=== PATIENT | male | born 1960 | race Caucasian/White ===

== ENCOUNTER 2016-05-12 10:06 | Emergency (ER) | payer OTHER ==
[2016-05-12 10:15] VITALS: BMI 31.6
[2016-05-12] MEDS ORDERED: ONDANSETRON 4 MG/2 ML VIAL IVPB ONE (10:58)
[2016-05-12] MEDS ORDERED: MECLIZINE HCL 25 MG TABLET (FP) PO ONE (10:58)
[2016-05-12] MEDS ORDERED: SODIUM CHLORIDE 1,000 ML IV STA (10:58)
--- NOTE | 2016-05-12 10:58 | PDOC ---
History of Present Illness - History of Present Illness Initial Comments: 05/12/16 11:53 The patient is 55 year old male with significant past medical history of hypertension, hyperlipidemia, CAD s/p stents x4, who presents to the emergency department with dizziness since 3am this morning. The patient states he went to bed in his normal states of health and then woke up around 3am with dizziness, nausea, and vomiting. The patient states he is dizzy when he lays down but he is not dizzy when sitting up or with walking. The patient denies any headache. He denies any vision changes or blurry vision. The patient denies any abdominal pain or diarrhea but reports associated nausea with his dizziness. The patient states he quit smoking 8 years ago. He denies any recent illness, fevers, or chills. He denies sick contacts. <Carmenza Wiblurn - Last Filed: 05/12/16 11:56> - General History Source: Patient Exam Limitations: No Limitations <Isabel Valadez - Last Filed: 05/14/16 13:32> - General Chief Complaint: Pain, Acute Stated Complaint: ABD PAIN, NAUSEA, DIZZINESS Time Seen by Provider: 05/12/16 10:41 Past History <Carmenza Wilburn - Last Filed: 05/12/16 11:56> - Past Medical History Cardiac Disorders: Yes (CAD, 4 STENTS) HTN: Yes Hypercholesterolemia: Yes Suicide Attempt (Hx): No - Surgical History Cardiac Surgery: Yes (STENT X 4) - Psycho/Social/Smoking Cessation Hx Anxiety: Yes (NOT ON MEDS; ON OCCASSION) Suicidal Ideation: No Smoking Status: Yes Smoking History: Former smoker Have you smoked in the past 12 months: No Number of Cigarettes Smoked Daily: 0 Information on smoking cessation initiated: No 'Breaking Loose' booklet given: 07/30/13 Hx Alcohol Use: No Drug/Substance Use Hx: No Substance Use Type: None <Isabel Valadez - Last Filed: 05/14/16 13:32> - Past Medical History Allergies/Adverse Reactions: Allergies Allergy/AdvReac Type Severity Reaction Status Date / Time No Known Allergies Allergy Verified 05/12/16 10:15 Home Medications: Ambulatory Orders Clopidogrel Bisulfate [Plavix -] 75 mg PO DAILY 07/23/11 Aspirin [ASA -] 81 mg PO DAILY 05/08/14 Atorvastatin Ca [Lipitor] 60 mg PO HS #60 tablet 05/22/14 Metoprolol Succinate [Toprol XL -] 25 mg PO DAILY #60 tab.sr.24h 05/22/14 Meclizine HCl [Antivert -] 25 mg PO TID #21 tablet 05/12/16 Review of Systems - Review of Systems Able to Perform ROS?: Yes Comments:: 05/12/16 11:54 GENERAL/CONSTITUTIONAL: No: fever, chills, weakness, loss of appetite. HEAD, EYES, EARS, NOSE AND THROAT: No: change in vision, ear pain, discharge, sore throat, throat swelling. CARDIOVASCULAR: No: chest pain, lightheadedness, palpitations, syncope RESPIRATORY: No: cough, shortness of breath, wheezing, hemoptysis, stridor. GASTROINTESTINAL: +Nausea, +vomiting. No: abdominal cramping, diarrhea, rectal bleeding, constipation. GENITOURINARY: No: dysuria, hematuria, frequency, urgency, flank pain. MUSCULOSKELETAL: No: back pain, neck pain, joint pain, muscle swelling or pain SKIN AND BREASTS: No: lesions, pallor, rash or easy bruising. NEUROLOGIC: +Vertigo. No: headache, paresthesias, weakness ENDOCRINE: No: unexplained weight gain or loss HEMATOLOGIC/LYMPHATIC: No: anemia, easy bleeding, swelling nodes <Carmenza Wilburn - Last Filed: 05/12/16 11:56> *Physical Exam - Vital Signs Last Vital Signs Temp Pulse Resp BP Pulse Ox 98 F 63 18 158/68 99 05/12/16 10:12 05/12/16 10:12 05/12/16 10:12 05/12/16 10:12 05/12/16 10:12 - Physical Exam Comments: 05/12/16 11:54 GENERAL: The patient is in no acute distress. HEAD: Normal with no signs of trauma. EYES: PERRLA, EOMI, sclera anicteric, conjunctiva clear. ENT: Ears normal, nares patent, oropharynx clear without exudates. Moist mucous membranes. NECK: Normal range of motion, supple without lymphadenopathy, JVD, or masses. LUNGS: Breath sounds equal, clear to auscultation bilaterally. No wheezes, and no crackles. HEART: Regular rate and rhythm, normal S1 and S2, +4/6 systolic murmur, no rub or gallop. ABDOMEN: +Epigastric discomfort to palpation. Soft, normoactive bowel sounds. No guarding, no rebound. EXTREMITIES: Normal range of motion, no edema. No clubbing or cyanosis. No erythema, or tenderness. NEUROLOGICAL: Cranial nerves II through XII grossly intact. Normal speech, normal gait. No focal neurological deficits. MUSCULOSKELETAL: Back non-tender to palpation, no CVA tenderness SKIN: Warm, Dry, normal turgor, no rashes or lesions noted. <Carmenza Wilburn - Last Filed: 05/12/16 11:56> - Vital Signs Last Vital Signs Temp Pulse Resp BP Pulse Ox 98 F 63 18 158/68 99 05/12/16 10:12 05/12/16 10:12 05/12/16 10:12 05/12/16 10:12 05/12/16 10:12 <Isabel Valadez - Last Filed: 05/14/16 13:32> Heart Score/ECG Review #1 ECG reviewed & interpreted by me at: 11:12 General ECG Interpretation: Sinus Rhythm, Normal Rate, Normal Intervals, No acute ischemic changes <Isabel Valadez - Last Filed: 05/14/16 13:32> ED Treatment Course - LABORATORY CBC & Chemistry Diagram: 05/12/16 11:09 05/12/16 11:09 <Carmenza Wilburn - Last Filed: 05/12/16 11:56> - LABORATORY CBC & Chemistry Diagram: 05/12/16 11:09 05/12/16 11:09 <Isabel Valadez - Last Filed: 05/14/16 13:32> Medical Decision Making - Medical Decision Making 05/12/16 10:57 A portion of this note was documented by scribe services under my direction. I have reviewed the details of the note, within reason, and agree with the documentation with the following case summary and management plan written by me. Nursing documentation reviewed and incorporated into medical decision making 05/12/16 13:33 This is a 55 yo M who presents with a complaint of nausea, vomiting, vertigo abdominal pain No headache No head trauma No tinnitus Pt states his symptoms worsen when he lays flat No prior episodes like this No fevers, chills, recent illness With pt abdominal symptoms, he thought his symptoms might be due to what he ate last night Pt has RUQ tenderness to palpation On examination No ataxia No nystagmus Able to trigger symptoms when pt is laid flat DD: Vertigo: Labrynthiais, BPPV, Posterior PAthologh Abdominal pain: cholecystitis, cholelithiasis, Pancreatitis, SBO Will check labs Will check Head CT Will check US 05/12/16 13:41 05/12/16 13:41 Laboratory Tests 05/12/16 05/12/16 11:09 11:09 WBC 8.2 Hgb 15.5 Hct 45.6 Plt Count 190 Neutrophils % 61.8 Lymphocytes % 30.9 D BUN 20 H Creatinine 1.1 D Random Glucose 105 Creatine Kinase 152 D Troponin I < 0.02 Upon re assessment Pt states he feels better No longer vertiginous when he lays flat Tolerated a tray of food with no dfficulty clinical impression: vertigo Will discharge on Meclizine Return to the ER for any other concerns or complaints <Isabel Valadez - Last Filed: 05/14/16 13:32> *DC/Admit/Observation/Transfer - Attestations Scribe Attestion: 05/12/16 11:05 Documentation prepared by Carmenza Wilburn, acting as general medical practitioner for Isabel Valadez MD. <Carmenza Wilburn - Last Filed: 05/12/16 11:56> - Discharge Dispostion Admit: No <Isabel Valadez - Last Filed: 05/14/16 13:32> Diagnosis at time of Disposition: Benign positional vertigo Qualifiers: Laterality: unspecified laterality Qualified Code(s): H81.10 - Benign paroxysmal vertigo, unspecified ear - Discharge Dispostion Disposition: HOME Condition at time of disposition: Improved - Prescriptions Prescriptions: Meclizine HCl [Antivert -] 25 mg PO TID #21 tablet - Referrals Referrals: Rian Castillo MD [Primary Care Provider] - - Patient Instructions Printed Discharge Instructions: DI for Benign Paroxysmal Positional Vertigo, Vertigo (Alternative Therapy) Additional Instructions: Librado Thank you for coming in to the ER today It appears that you have vertigo Please fill your prescription for Meclizine which will help your symptoms Please follow up with your doctor within 2-3 days Return to the Er immediately for persistent or new symptoms We also evaluated your gall bladder Your gallbladder looks fine Your liver has some changes on ultrasound Please review your results and follow up with your doctor with these results - Post Discharge Activity Work/School Note: Back to Work
[2016-05-12] MEDS ORDERED: MECLIZINE HCL 25 MG TABLET (FP) ONE (11:17)
[2016-05-12] MEDS ORDERED: ONDANSETRON 4 MG/2 ML VIAL ONE (11:17)
[2016-05-12 11:21] LABS: BASOPHIL 0.6 % (0-2.0); MCH 28.3 pg (25.7-33.7); MCHC 33.9 g/dl (32.0-35.9); MEAN CELL VOLUME 83.6 fl (80-96); MEAN PLT VOLUME 8.3 fl (7.5-11.1); NEUTROPHILS 61.8 % (42.8-82.8); PLATELET COUNT 190 K/MM3 (134-434); RDW 14.2 % (11.9-15.9); WHITE BLOOD COUNT 8.2 K/mm3 (4.0-10.0)
[2016-05-12 11:47] LABS: ALBUMIN 4.1 g/dl (3.4-5.0); ANION GAP 6 (8-16); BILIRUBIN,TOTAL 0.5 mg/dL (0.2-1.0); CALCIUM 8.9 mg/dL (8.5-10.1); CO2 32 mmol/L (21-32); CREATININE 1.1 mg/dL (0.7-1.3); GLUCOSE,RANDOM 105 mg/dL (74-106); SGOT/AST 16 U/L (15-37); SGPT/ALT 31 U/L (12-78); TOT PROT 7.1 g/dl (6.4-8.2)
[2016-05-12 11:50] LABS: ALK PHOS 81 U/L (45-117); TROPONIN I < 0.02 ng/ml (0.00-0.05)
--- NOTE | 2016-05-12 14:13 | EKG ---
Test Reason : Blood Pressure : / mmHG Vent. Rate : 065 BPM Atrial Rate : 065 BPM P-R Int : 134 ms QRS Dur : 084 ms QT Int : 396 ms P-R-T Axes : 000 011 039 degrees QTc Int : 411 ms NORMAL SINUS RHYTHM NORMAL ECG WHEN COMPARED WITH ECG OF 20-DEC-2014 08:59, NONSPECIFIC T WAVE ABNORMALITY, IMPROVED IN LATERAL LEADS Confirmed by BRITT MONTOYA MD ([id number]) on 05/12/2016 2:13:20 PM Referred By: Confirmed By:BRITT MONTOYA MD
[2016-05-12 14:17] VITALS: BP 127/86; PULSE 64; TEMP 97.8
== END 2016-05-12 14:17 | disposition home or self-care (01) ==
LOC: JER 10:06
PROC: 3E033GC Introduction of Other Therapeutic Substance into Peripheral Vein, Percutaneous Approach (ICD-10-PCS; principal; 2016-05-12)
PROC: 3E0337Z Introduction of Electrolytic and Water Balance Substance into Peripheral Vein, Percutaneous Approach (ICD-10-PCS; 2016-05-12)
DX: H81.10 Benign paroxysmal vertigo, unspecified ear (principal); I10 Essential (primary) hypertension; Z95.5 Presence of coronary angioplasty implant and graft; E78.00 Pure hypercholesterolemia, unspecified; Z87.891 Personal history of nicotine dependence
CPT/HCPCS: 36415; 70450-TC; 76705-TC; 80053; 82550; 82553; 84484; 85025; 93005; 93010; 99283-25

== ENCOUNTER 2017-10-17 18:00 | Observation (INO) | payer OTHER ==
--- NOTE | 2017-10-17 18:18 | PDOC ---
Rapid Medical Evaluation Chief Complaint: Chest Pain Time Seen by Provider: 10/17/17 18:13 Medical Evaluation: Allergies Allergy/AdvReac Type Severity Reaction Status Date / Time No Known Allergies Allergy Verified 10/17/17 18:05 Vital Signs Temp Pulse Resp BP Pulse Ox 99.2 F 61 18 148/72 99 10/17/17 18:05 10/17/17 18:05 10/17/17 18:05 10/17/17 18:05 10/17/17 18:05 10/17/17 18:13 complain: Patient with h/o unstable angina with 3 heart stents placed 8hrs ago, HPL on lipitor and plavix with ASA present with complains of burning chest pain upon wake this AM going to the back and left shoulder area. Patient report pressure in the chest which comes on with deep breathing and going to mid-back and left shoulder area. no SOB, no palpitations, no sweats, no N/V exam: pt stable in NAD. lungs:CTA b/l. heart: RRR, non-tender chest wall. : abd : soft NT/ND order: EKG with NSR f/u patient will proceed to ED for further evaluation Discharge Disposition - Diagnosis Chest pain Qualifiers: Chest pain type: chest pain on breathing Qualified Code(s): R07.1 - Chest pain on breathing; R07.81 - Pleurodynia - Referrals - Patient Instructions - Post Discharge Activity
[2017-10-17 18:27] VITALS: BMI 31.1
[2017-10-17] MEDS ORDERED: ASPIRIN 81 MG CHEWABLE TABLETS PO ONE (18:59)
--- NOTE | 2017-10-17 18:59 | PDOC ---
History of Present Illness - General History Source: Patient Exam Limitations: No Limitations <Kristan Gomez - Last Filed: 10/17/17 22:01> - General History Source: Patient Exam Limitations: No Limitations - History of Present Illness Presenting Symptoms: Chest Pain Timing/Duration: reports: changing over time Severity/Quality: reports: pressure Chest Pain Radiation: reports: no radiation Prior Chest Pain/Cardiac Workup: reports: Cardiac Cath, Echocardiography, Stress Test Aspirin Received prior to arrival (Core Measure): Yes: 81 mg x 2, provided by ED Beta Pio taken at Home (Core Measure): Yes (takes metoprolol daily and plavix) <Migdalia Jeffrey - Last Filed: 10/18/17 01:47> - General Chief Complaint: Chest Pain Stated Complaint: CHEST PAIN Time Seen by Provider: 10/17/17 18:13 - History of Present Illness Initial Comments: 10/17/17 19:03 The patient is a 58 year old male, with a significant past medical history of hypertension, CAD s/p stents x4, hyperlipidemia, who presents to the emergency department with chest pain since waking up this morning. He reports the pain is 7/10, constant, pressure to his chest. He reports his pain is exacerbated with activity and deep inspiration. He states this pain is not similar to his previous experience of chest pain leading up to his stent placements. He denies pain radiation into his neck or arms. The patient denies shortness of breath, headache and dizziness. The patient denies fever, chills, nausea, vomit, diarrhea and constipation.The patient denies dysuria, frequency, urgency and hematuria. Allergies: NKDA Past surgical history: stent x4 Social history: occasional beer. No illicit drugs or tobacco. PCP - Dr. Jessica Castillo (Kristan Gomez) Past History <Kristan Gomez - Last Filed: 10/17/17 22:01> - Past Medical History Cardiac Disorders: Yes (CAD, 4 STENTS) COPD: No HTN: Yes Hypercholesterolemia: Yes - Surgical History Cardiac Surgery: Yes (STENT X 4) - Suicide/Smoking/Psychosocial Hx Smoking Status: Yes Smoking History: Never smoked Have you smoked in the past 12 months: No Number of Cigarettes Smoked Daily: 0 Information on smoking cessation initiated: No 'Breaking Loose' booklet given: 07/30/13 Hx Alcohol Use: No Drug/Substance Use Hx: No Substance Use Type: None <Migdalia Jeffrey - Last Filed: 10/18/17 01:47> - Past Medical History Allergies/Adverse Reactions: Allergies Allergy/AdvReac Type Severity Reaction Status Date / Time No Known Allergies Allergy Verified 10/17/17 18:05 Home Medications: Ambulatory Orders Clopidogrel Bisulfate [Plavix -] 75 mg PO DAILY 07/23/11 Aspirin [ASA -] 81 mg PO DAILY 05/08/14 Atorvastatin Ca [Lipitor] 60 mg PO HS #60 tablet 05/22/14 Metoprolol Succinate [Toprol XL -] 25 mg PO DAILY #60 tab.sr.24h 05/22/14 Meclizine HCl [Antivert -] 25 mg PO TID #21 tablet 05/12/16 Review of Systems - Review of Systems Able to Perform ROS?: Yes <Kristan Gomez - Last Filed: 10/17/17 22:01> <Migdalia Jeffrey - Last Filed: 10/18/17 01:47> - Review of Systems Comments:: 10/17/17 19:03 CONSTITUTIONAL: Absent: fever, chills, diaphoresis, generalized weakness, malaise, loss of appetite HEENT: Absent: rhinorrhea, nasal congestion, throat pain, throat swelling, difficulty swallowing, mouth swelling, ear pain, eye pain, visual Changes CARDIOVASCULAR: (+) chest pain and pressure, Absent: syncope, palpitations, irregular heart rate , lightheadedness, peripheral edema RESPIRATORY: Absent: cough, shortness of breath, dyspnea with exertion, orthopnea, wheezing, stridor, hemoptysis GASTROINTESTINAL: Absent: abdominal pain, abdominal distension, nausea, vomiting, diarrhea, constipation, melena, hematochezia GENITOURINARY: Absent: dysuria, frequency, urgency, hesitancy, hematuria, flank pain, genital pain MUSCULOSKELETAL: Absent: myalgia, arthralgia, joint swelling SKIN: Absent: rash, itching, pallor HEMATOLOGIC/IMMUNOLOGIC: Absent: easy bleeding, easy bruising, lymphadenopathy, frequent infections ENDOCRINE: Absent: unexplained weight gain, unexplained weight loss, heat intolerance, cold intolerance NEUROLOGIC: Absent: headache, focal weakness or paresthesias, dizziness, unsteady gait, seizure, mental status changes, bladder or bowel incontinence PSYCHIATRIC: Absent: anxiety, depression, suicidal or homicidal ideation, hallucinations. (Kristan Gomez) *Physical Exam <Kristan Gomez - Last Filed: 10/17/17 22:01> <Migdalia Jeffrey - Last Filed: 10/18/17 01:47> - Vital Signs Last Vital Signs Temp Pulse Resp BP Pulse Ox 99.2 F 61 18 148/72 99 10/17/17 18:05 10/17/17 18:05 10/17/17 18:05 10/17/17 18:05 10/17/17 18:05 - Physical Exam Comments: 10/17/17 19:08 GENERAL: Well developed, well nourished. Awake and alert. No acute distress. HEENT: Normocephalic, atraumatic. PERRLA, EOMI. No conjunctival pallor. Sclera are non- icteric. Moist mucous membranes. Oropharynx is clear. NECK: Supple. Full ROM. No JVD. Carotid pulses 2+ and symmetric, without bruits. No thyromegaly. No lymphadenopathy. CARDIOVASCULAR: Regular rate and rhythm. No murmurs, rubs, or gallops. Distal pulses are 2+ and symmetric. PULMONARY: No evidence of respiratory distress. Lungs clear to auscultation bilaterally. No wheezing, rales or rhonchi. ABDOMINAL: Soft. Non-tender. Non-distended. No rebound or guarding. No organomegaly. Normoactive bowel sounds. MUSCULOSKELETAL Normal range of motion at all joints. No bony deformities or tenderness. No CVA tenderness. EXTREMITIES: No cyanosis. No clubbing. No edema. No calf tenderness. SKIN: Warm and dry. Normal capillary refill. No rashes. No jaundice. NEUROLOGICAL: Alert, awake, appropriate. Cranial nerves 2-12 intact. Normoreflexic in the upper and lower extremities. Normal speech. Toes are down-going bilaterally. Gait is normal without ataxia. PSYCHIATRIC: Cooperative. Good eye contact. Appropriate mood and affect. (Kristan Gomez) ED Treatment Course - LABORATORY CBC & Chemistry Diagram: 10/17/17 20:20 10/17/17 20:20 <Kristan Gomez - Last Filed: 10/17/17 22:01> - LABORATORY CBC & Chemistry Diagram: 10/17/17 20:20 10/17/17 20:20 <Migdalia Jeffrey - Last Filed: 10/18/17 01:47> - ADDITIONAL ORDERS Additional order review: Laboratory Results 10/17/17 10/17/17 10/17/17 23:30 20:20 20:20 PT with INR 11.70 INR 1.04 Sodium 145 Potassium 4.2 Chloride 110 H Carbon Dioxide 28 Anion Gap 7 L BUN 24 H Creatinine 1.1 Creat Clearance w eGFR > 60 Random Glucose 91 Calcium 9.1 Magnesium 2.3 Total Bilirubin 0.4 AST 28 D ALT 40 D Alkaline Phosphatase 75 Creatine Kinase 153 Creatine Kinase Index 0.4 CK-MB (CK-2) 0.75 Troponin I < 0.02 B-Natriuretic Peptide 133.87 H Total Protein 7.6 Albumin 4.3 10/17/17 20:20 RBC 5.42 MCV 85.6 MCHC 33.9 RDW 14.0 MPV 8.5 Neutrophils % 66.4 Lymphocytes % 23.1 D Monocytes % 8.4 Eosinophils % 1.7 Basophils % 0.4 - RADIOLOGY Radiology Studies Ordered: Category Date Time Status CHEST X-RAY PORTABLE* [RAD] Stat Radiology 10/17/17 19:01 Completed - Medications Given in the ED: ED Medications Discontinued Medications Generic Name Dose Route Start Last Admin Trade Name Freq PRN Reason Stop Dose Admin Aspirin 162 mg 10/17/17 18:59 10/17/17 22:46 Asa - PO 10/17/17 19:00 162 mg ONCE ONE Administration *DC/Admit/Observation/Transfer <Kristan Gomez - Last Filed: 10/17/17 22:01> - Discharge Dispostion Decision to Admit order: Yes <Migdalia Jeffrey - Last Filed: 10/18/17 01:47> Diagnosis at time of Disposition: Chest pain Qualifiers: Chest pain type: chest pain on breathing Qualified Code(s): R07.1 - Chest pain on breathing - Discharge Dispostion Decision to Admit order Date/Time: Decision to Admit Order Category Date Time Status Decision to Admit to Hospital Routine Admission 10/17/17 23:05 Active - Referrals Referrals: Rian Castillo MD [Primary Care Provider] - - Patient Instructions - Post Discharge Activity - Attestations Scribe Attestion: 10/17/17 19:09 Documentation prepared by Kristan Gomez, acting as medical legal investigator for Migdalia Jeffrey MD (Kristan Gomez)
[2017-10-17 20:45] LABS: BASO % 0.4 % (0-2.0); EOS % 1.7 % (0-4.5); HEMATOCRIT 46.4 % (35.4-49); HEMOGLOBIN 15.7 GM/dL (11.7-16.9); LYMPH % 23.1 % (8-40); MCHC 33.9 g/dl (32.0-35.9); MEAN CELL VOLUME 85.6 fl (80-96); MEAN PLT VOLUME 8.5 fl (7.5-11.1); MONO % 8.4 % (3.8-10.2); NEUT % 66.4 % (42.8-82.8); PLATELET COUNT 208 K/MM3 (134-434); RBC 5.42 M/mm3 (4.00-5.60); WHITE BLOOD COUNT 11.7 K/mm3 (4.0-10.0)
[2017-10-17 20:51] LABS: INR 1.04 (0.83-1.09); PROTHROMBIN TIME (PATIENT) 11.7 SEC (9.7-13.0)
[2017-10-17 20:59] LABS: ALBUMIN 4.3 g/dl (3.4-5.0); ANION GAP 7 (8-16); BILIRUBIN,TOTAL 0.4 mg/dL (0.2-1.0); BLOOD UREA NITROGEN 24 mg/dL (7-18); CALCIUM 9.1 mg/dL (8.5-10.1); CHLORIDE 110 mmol/L (98-107); CO2 28 mmol/L (21-32); CREATININE 1.1 mg/dL (0.7-1.3); GLUCOSE,RANDOM 91 mg/dL (74-106); MAGNESIUM 2.3 mg/dL (1.8-2.4); POTASSIUM 4.2 mmol/L (3.5-5.1); SGOT/AST 28 U/L (15-37); SGPT/ALT 40 U/L (12-78); SODIUM 145 mmol/L (136-145); TOT PROT 7.6 g/dl (6.4-8.2)
[2017-10-17 21:02] LABS: ALK PHOS 75 U/L (45-117)
[2017-10-17] MEDS ORDERED: ASPIRIN 81 MG CHEWABLE TABLETS ONE (22:23)
--- NOTE | 2017-10-17 22:49 | HP ---
Admitting History and Physical - Primary Care Physician PCP: Rian Castillo - Admission Chief Complaint: Chest Pressure History of Present Illness: This is a 57 y/o man with a significant medical history of CAD s/p stents x 4, HTN, HLD. Who presents to the ED with midsternal chest pressure radiating to his back x am. Patient reports the pressure increases with movement and deep inspiration. Patient reports SOB. Patient denies fever, chills, cough, dizziness , OROZCO, AP, N/V/D, constipation, dysuira. History Source: Patient Limitations to Obtaining History: No Limitations - Past Medical History Cardiovascular: Yes: CAD, HTN, Hyperlipdemia, [place], Murmur Infectious Disease: Yes: Other (h/o rheumatic fever) Psych: Yes: Anxiety, Depression - Past Surgical History Past Surgical History: Yes: Stent - Smoking History Smoking history: Former smoker Have you smoked in the past 12 months: No Aproximately how many cigarettes per day: 0 - Alcohol/Substance Use Hx Alcohol Use: No History of Substance Use: reports: None - Social History Usual Living Arrangement: Yes: With Parent ADL: Independent Occupation: Retired, Disabled History of Recent Travel: No Home Medications - Allergies Allergies/Adverse Reactions: Allergies Allergy/AdvReac Type Severity Reaction Status Date / Time No Known Allergies Allergy Verified 10/17/17 18:05 - Home Medications Home Medications: Ambulatory Orders Clopidogrel Bisulfate [Plavix -] 75 mg PO DAILY 07/23/11 Aspirin [ASA -] 81 mg PO DAILY 05/08/14 Atorvastatin Ca [Lipitor] 60 mg PO HS #60 tablet 05/22/14 Metoprolol Succinate [Toprol XL -] 25 mg PO DAILY #60 tab.sr.24h 05/22/14 Meclizine HCl [Antivert -] 25 mg PO TID #21 tablet 05/12/16 Family Disease History - Family Disease History Family Disease History: Heart Disease: Mother (Thyroid), Other: Father (CVA at 77, ), Mother Review of Systems - Review of Systems Constitutional: reports: No Symptoms Eyes: reports: No Symptoms HENT: reports: No Symptoms Neck: reports: No Symptoms Cardiovascular: reports: Chest Pain, Shortness of Breath Respiratory: reports: SOB, SOB on Exertion Gastrointestinal: reports: No Symptoms Genitourinary: reports: No Symptoms Breasts: reports: No Symptoms Reported Musculoskeletal: reports: Back Pain Integumentary: reports: No Symptoms Neurological: reports: No Symptoms Endocrine: reports: No Symptoms Hematology/Lymphatic: reports: No Symptoms Psychiatric: reports: No Symptoms Physical Examination Vital Signs: Vital Signs Temperature 99.2 F 10/17/17 18:05 Pulse Rate 61 10/17/17 18:05 Respiratory Rate 18 10/17/17 18:05 Blood Pressure 148/72 10/17/17 18:05 O2 Sat by Pulse Oximetry (%) 99 10/17/17 18:05 Constitutional: Yes: Well Nourished, No Distress, Calm Eyes: Yes: WNL, Conjunctiva Clear, EOM Intact, PERRL HENT: Yes: WNL, Atraumatic, Normocephalic Neck: Yes: WNL, Supple, Trachea Midline Cardiovascular: Yes: WNL, Regular Rate and Rhythm, Murmur (2/6), S1, S2 Respiratory: Yes: WNL, Regular, CTA Bilaterally Gastrointestinal: Yes: WNL, Normal Bowel Sounds, Soft, Abdomen, Obese ...Rectal Exam: Yes: Deferred Renal/: Yes: WNL Breast(s): Yes: WNL Musculoskeletal: Yes: Back Pain Extremities: Yes: WNL Edema: No Peripheral Pulses WNL: Yes Integumentary: Yes: WNL Neurological: Yes: WNL, Alert, Oriented, Cran Nerves II-XII Intact ...Motor Strength: WNL Psychiatric: Yes: WNL, Alert, Oriented Labs: CBC, BMP 10/17/17 20:20 10/17/17 20:20 Troponin, BNP 10/17/17 10/17/17 20:20 23:30 Troponin I < 0.02 B-Natriuretic Peptide 133.87 H Intake & Output 10/15/17 10/16/17 10/17/17 10/18/17 23:59 23:59 23:59 23:59 Weight 84.822 kg Imaging - Results Chest X-ray: Report Reviewed, Image Reviewed Problem List - Problems (1) Chest pain Code(s): R07.9 - CHEST PAIN, UNSPECIFIED Qualifiers: Chest pain type: chest pain on breathing Qualified Code(s): R07.1 - Chest pain on breathing; R07.81 - Pleurodynia (2) CAD (coronary artery disease) Code(s): I25.10 - ATHSCL HEART DISEASE OF [place] CORONARY ARTERY W/O ANG PCTRS (3) Hyperlipidemia Code(s): E78.5 - HYPERLIPIDEMIA, UNSPECIFIED (4) Hypertension Code(s): I10 - ESSENTIAL (PRIMARY) HYPERTENSION Qualifiers: Hypertension type: essential hypertension Qualified Code(s): I10 - Essential (primary) hypertension Assessment/Plan This is a 57 y/o man placed in Tele Observation for Chest Pain r/o ACS for further evaluation of their emergent condition. Plan: 1. Cardiology Chest Pain - r/o ACS - Continue cardiac Monitoring - Chest Xray- reviewed no acute process - EKG- pending review - Serial Enzymes neg x1, will trend x2 - Repeat EKG in am - Appreciate Cardiology consult - Echo in am - Asa given in ED will continue - Morphine Sulfate prn - NTG sl prn CAD - s/p Stent x4 - Continue Asa, Plavix, Metoprolol HTN - stable - Monitor BP - Continue Metoprolol with parameters - Monitor renal function FEN - PO Fluids as tolerated - Replete lytes prn - Low Na, Low Cholesterol Diet Code Status: Full Code Dispo: Observation Visit type - Emergency Visit Emergency Visit: Yes ED Registration Date: 10/17/17 Care time: The patient presented to the Emergency Department on the above date and was hospitalized for further evaluation of their emergent condition. - New Patient This patient is new to me today: Yes Date on this admission: 10/17/17 - Critical Care Critical Care patient: No Hospitalist Screening - Colonoscopy Questionnaire Colonoscopy Questionnaire: Colonoscopy Questionnaire - Patient: 50 - 75 years old and never had a screening colonoscopy: No History of colon or rectal polyps, or CA: No History of IBD, Crohn's disease or UC: No History of abdominal radiation therapy as a child: No - Relative: 1 with colon or rectal CA, or polyps at age 60 or younger: No Colon or rectal CA diagnosed at age 45 or younger: No Multiple relatives with colon or rectal CA: No - Outcome: Screening Result: Negative Screen
[2017-10-18] MEDS ORDERED: morphine SULFATE 4 MG/ML VIAL IVPUSH PRN (02:29)
[2017-10-18] MEDS ORDERED: morphine SULFATE 4 MG/ML VIAL ONE (03:16)
[2017-10-18 07:46] LABS: BASO % 0.4 % (0-2.0); EOS % 1.9 % (0-4.5); HEMATOCRIT 41.2 % (35.4-49); HEMOGLOBIN 14.4 GM/dL (11.7-16.9); LYMPH % 34.2 % (8-40); MCH 29.6 pg (25.7-33.7); MEAN CELL VOLUME 84.7 fl (80-96); MEAN PLT VOLUME 8.4 fl (7.5-11.1); MONO % 8.2 % (3.8-10.2); NEUT % 55.3 % (42.8-82.8); PLATELET COUNT 154 K/MM3 (134-434); RBC 4.86 M/mm3 (4.00-5.60); RDW 13.9 % (11.9-15.9); WHITE BLOOD COUNT 8.8 K/mm3 (4.0-10.0)
[2017-10-18 08:12] LABS: CHLORIDE 112 mmol/L (98-107); POTASSIUM 4.4 mmol/L (3.5-5.1); SODIUM 147 mmol/L (136-145)
[2017-10-18 08:16] LABS: ANION GAP 9 (8-16); BLOOD UREA NITROGEN 24 mg/dL (7-18); CALCIUM 8.7 mg/dL (8.5-10.1); CO2 26 mmol/L (21-32); GLUCOSE,RANDOM 86 mg/dL (74-106); MAGNESIUM 2.2 mg/dL (1.8-2.4); PHOSPHOROUS 3.7 mg/dL (2.5-4.9)
--- NOTE | 2017-10-18 08:30 | CON.CARD ---
Consult Consult Specialty:: cardiology Reason for Consultation:: chest pain; hx CAD-->coronary stent - History of Present Illness Chief Complaint: A&OX3; no chest pain presently. History of Present Illness: The patient is a 58 year old male, with a significant past medical history of hypertension, CAD s/p stents x4, hyperlipidemia, who presents to the emergency department with chest pain since waking up this morning. He reports the pain is 7/10, constant, pressure to his chest. He reports his pain is exacerbated with activity and deep inspiration. He states this pain is not similar to his previous experience of chest pain leading up to his stent placements. He denies pain radiation into his neck or arms. The patient denies shortness of breath, headache and dizziness. The patient denies fever, chills, nausea, vomit, diarrhea and constipation.The patient denies dysuria, frequency, urgency and hematuria. Allergies: NKDA Past surgical history: stent x4 Social history: occasional beer. No illicit drugs or tobacco. PCP - Dr. Jessica Castillo Pointer Helper: Dr. Chadwick - History Source History Provided By: Patient, Medical Record Limitations to Obtaining History: No Limitations - Past Medical History Cardio/Vascular: Yes: CAD, HTN, Hyperlipdemia, [place], Murmur Renal/: No: Renal Failure Infectious Disease: Yes: Other (R/O hx Rheumatic fever) Psych: Yes: Anxiety, Depression - Past Surgical History Past Surgical History: Yes: Stent (several coronary stents) - Alcohol/Substance Use Hx Alcohol Use: No History of Substance Use: reports: None - Smoking History Smoking history: Former smoker Have you smoked in the past 12 months: No Aproximately how many cigarettes per day: 0 - Social History ADL: Independent Occupation: Retired, Disabled History of Recent Travel: No Home Medications - Allergies Allergies/Adverse Reactions: Allergies Allergy/AdvReac Type Severity Reaction Status Date / Time No Known Allergies Allergy Verified 10/17/17 18:05 - Home Medications Home Medications: Ambulatory Orders Clopidogrel Bisulfate [Plavix -] 75 mg PO DAILY 07/23/11 Aspirin [ASA -] 81 mg PO DAILY 05/08/14 Atorvastatin Ca [Lipitor] 60 mg PO HS #60 tablet 05/22/14 Metoprolol Succinate [Toprol XL -] 25 mg PO DAILY #60 tab.sr.24h 03/11/15 Meclizine HCl [Antivert -] 25 mg PO TID #21 tablet 05/12/16 Family Disease History - Family Disease History Family Disease History: Heart Disease: Mother (Thyroid), Other: Father (CVA at 77, ), Mother Review of Systems - Review of Systems Constitutional: reports: No Symptoms Eyes: reports: No Symptoms HENT: reports: No Symptoms Neck: reports: No Symptoms Cardiovascular: reports: Chest Pain, Shortness of Breath Respiratory: reports: No Symptoms Gastrointestinal: reports: No Symptoms Genitourinary: reports: No Symptoms Breasts: reports: No Symptoms Reported Musculoskeletal: reports: No Symptoms Integumentary: reports: No Symptoms Neurological: reports: No Symptoms Endocrine: reports: No Symptoms Hematology/Lymphatic: reports: No Symptoms Psychiatric: reports: Anxiety - Risk Factors Known Risk Factors: Yes: Age, Gender, Hypercholesterolemia, Hypertension, Other (CAD-->coronary stents) Vital Signs: Vital Signs Temperature 98.0 F 10/18/17 07:06 Pulse Rate 58 L 10/18/17 07:06 Respiratory Rate 16 10/18/17 02:10 Blood Pressure 132/64 10/18/17 07:06 O2 Sat by Pulse Oximetry (%) 97 10/18/17 07:06 Constitutional: Yes: Well Nourished, Anxious Eyes: Yes: WNL HENT: Yes: WNL Neck: Yes: WNL Respiratory: Yes: WNL Gastrointestinal: Yes: WNL Renal/: Yes: WNL Cardiovascular: Yes: WNL JVD: No Carotid Bruit: No PMI: Non-Displaced Heart Sounds: Yes: S1, S2, S4 Musculoskeletal: Yes: WNL Extremities: Yes: WNL Edema: No Peripheral Pulses WNL: Yes Neurological: Yes: WNL ...Motor Strength: WNL Psychiatric: Yes: Other - Other Data Labs, Other Data: CBC, BMP 10/18/17 06:25 10/18/17 06:25 INR, PTT INR 1.04 (0.83-1.09) 10/17/17 20:20 Troponin, BNP 10/17/17 10/17/17 10/18/17 20:20 23:30 02:30 Troponin I < 0.02 < 0.02 B-Natriuretic Peptide 133.87 H 10/18/17 06:25 Troponin I < 0.02 B-Natriuretic Peptide Troponin, BNP 10/17/17 10/17/17 10/18/17 20:20 23:30 02:30 Troponin I < 0.02 < 0.02 B-Natriuretic Peptide 133.87 H 10/18/17 06:25 Troponin I < 0.02 B-Natriuretic Peptide Imaging - Results EKG: Image Reviewed (normal study) Problem List - Problems (1) Anxiety Code(s): F41.9 - ANXIETY DISORDER, UNSPECIFIED (2) Chest pain Assessment/Plan: 1st TNI < 0.02; f/u serially. EKG WNL; f/u on telemetry. For stress MIBI. Code(s): R07.9 - CHEST PAIN, UNSPECIFIED Qualifiers: Chest pain type: chest pain on breathing Qualified Code(s): R07.1 - Chest pain on breathing; R07.81 - Pleurodynia (3) CAD (coronary artery disease) Code(s): I25.10 - ATHSCL HEART DISEASE OF [place] CORONARY ARTERY W/O ANG PCTRS (4) Hyperlipidemia Code(s): E78.5 - HYPERLIPIDEMIA, UNSPECIFIED (5) Hypertension Code(s): I10 - ESSENTIAL (PRIMARY) HYPERTENSION Qualifiers: Hypertension type: essential hypertension Qualified Code(s): I10 - Essential (primary) hypertension
--- NOTE | 2017-10-18 10:51 | PN ---
Progress Note, Physician Chief Complaint: has mild chest discomfort- awaiting stress test - Current Medication List Current Medications: Active Medications Aspirin (Asa -) 81 mg PO DAILY MAX[facility] Atorvastatin Calcium (Lipitor -) 60 mg PO HS [facility] Clopidogrel Bisulfate (Plavix -) 75 mg PO DAILY [facility] Metoprolol Succinate (Toprol Xl -) 25 mg PO DAILY [facility] Morphine Sulfate (Morphine Sulfate) 4 mg IVPUSH Q6H PRN PRN Reason: PAIN LEVEL 7 - 10 Last Admin: 10/18/17 03:20 Dose: 4 mg - Objective Vital Signs: Vital Signs Temperature 98.3 F 10/18/17 08:45 Pulse Rate 88 10/18/17 08:45 Respiratory Rate 18 10/18/17 08:45 Blood Pressure 139/77 10/18/17 08:45 O2 Sat by Pulse Oximetry (%) 97 10/18/17 08:45 Constitutional: Yes: No Distress Cardiovascular: Yes: Regular Rate and Rhythm Respiratory: Yes: CTA Bilaterally Gastrointestinal: Yes: Normal Bowel Sounds, Soft. No: Tenderness Edema: No Labs: CBC, BMP 10/18/17 06:25 10/18/17 06:25 INR, PTT INR 1.04 (0.83-1.09) 10/17/17 20:20 Problem List - Problems (1) Aortic stenosis Code(s): I35.0 - NONRHEUMATIC AORTIC (VALVE) STENOSIS (2) CAD (coronary artery disease) Code(s): I25.10 - ATHSCL HEART DISEASE OF [place] CORONARY ARTERY W/O ANG PCTRS (3) Chest pain Code(s): R07.9 - CHEST PAIN, UNSPECIFIED Qualifiers: Chest pain type: chest pain on breathing Qualified Code(s): R07.1 - Chest pain on breathing; R07.81 - Pleurodynia (4) Hyperlipidemia Code(s): E78.5 - HYPERLIPIDEMIA, UNSPECIFIED (5) Hypertension Code(s): I10 - ESSENTIAL (PRIMARY) HYPERTENSION Qualifiers: Hypertension type: essential hypertension Qualified Code(s): I10 - Essential (primary) hypertension Assessment/Plan Cardiac enzymes negative Continue with meds cardiology eval Stress test pending
[2017-10-18] MEDS ORDERED: REGADENOSON 0.4 MG/5 ML PRE-FILLED SYRINGE IVPUSH ONE ×2 (11:30→11:33)
[2017-10-18] MEDS ORDERED: AMINOPHYLLINE 250 MG/10 ML VIAL ONE (11:58)
[2017-10-18] MEDS: metoPROLOL SUCCINATE 25 MG TAB.SR.24H (FP) PO SCH (13:43)
[2017-10-18] MEDS: ASPIRIN 81 MG CHEWABLE TABLETS PO SCH (13:43)
[2017-10-18] MEDS: CLOPIDOGREL BISULFATE 75 MG TABLET (FP) PO SCH (13:43)
[2017-10-18] MEDS ORDERED: AMINOPHYLLINE 250 MG/10 ML VIAL IVPUSH ONE (14:30)
--- NOTE | 2017-10-18 15:25 | ECHO ---
Name: PATTI GREEN Exam:Adult Echocardiogram Study Date: 10/18/2017 12:26 PM Age: 57 yrs Reason For Study: CHEST PAIN Height: 65 in Weight: 187 lb BSA: 1.9 m2 MMode/2D Measurements & Calculations IVSd: 1.0 cm Ao root diam: 3.6 cm LVIDd: 5.5 cm LA dimension: 3.9 cm LVIDs: 3.4 cm LVPWd: 1.1 cm EDV(Teich): 147.3 ml LVOT diam: 2.0 cm ESV(Teich): 46.2 ml Doppler Measurements & Calculations MV E max benito: 113.5 cm/sec Ao V2 max: 216.7 cm/sec MV A max benito: 65.6 cm/sec Ao max P.0 mmHg MV E/A: 1.7 Ao V2 mean: 147.8 cm/sec MV dec time: 0.17 sec Ao mean P.3 mmHg Ao V2 VTI: 46.2 cm FABY(I,D): 1.4 cm2 AI P1/2t: 408.7 msec FABY(V,D): 1.4 cm2 AI max benito: 419.9 cm/sec LV V1 max P.1 mmHg AI max P.9 mmHg LV V1 mean P.9 mmHg AI dec slope: 300.9 cm/sec2 LV V1 max: 100.7 cm/sec LV V1 mean: 62.3 cm/sec LV V1 VTI: 20.8 cm MR max benito: 445.3 cm/sec SV(LVOT): 64.4 ml MR max P.3 mmHg TR max benito: 219.9 cm/sec Med Peak E' Benito: 5.8 cm/sec TR max P.3 mmHg Med E/e': 19.4 Lat Peak E' Benito: 5.7 cm/sec Lat E/e': 20.1 Procedure A complete two-dimensional transthoracic echocardiogram was performed (2D, M-mode, Doppler and color flow Doppler). Left Ventricle The left ventricular size, thickness and function are normal. E/A reversal consistent with but not di agnostic of poor LV compliance. Right Ventricle The right ventricle is normal in size and function. Atria Normal left and right atrial size and function. Mitral Valve There is mild mitral valve thickening. There is mild to moderate mitral regurgitation. Tricuspid Valve The tricuspid valve is not well visualized, but is grossly normal. There is trace tricuspid regurgita tion. Right ventricular systolic pressure is 25 mmhg. Aortic Valve There is moderate aortic valve thickening. Mild valvular aortic stenosis. The calculated aortic valve area using the continuity equation is 1.4 cm2. Moderate aortic regurgitation. Pulmonic Valve The pulmonic valve is not well visualized. Great Vessels The aortic root is normal size. Normal aortic arch, descending and ascending aorta. Pericardium/Pleura There is no pericardial effusion. There is no pleural effusion. Interpretation Summary The left ventricular size, thickness and function are normal The right ventricle is normal in size and function. Normal left and right atrial size and function. There is mild mitral valve thickening. There is mild to moderate mitral regurgitation. There is trace tricuspid regurgitation. Right ventricular systolic pressure is 25 mmhg. There is moderate aortic valve thickening. Mild valvular aortic stenosis. Moderate aortic regurgitation. MD Luan Angela 10/18/2017 03:24 PM
--- NOTE | 2017-10-18 16:27 | EKG ---
Test Reason : Blood Pressure : / mmHG Vent. Rate : 061 BPM Atrial Rate : 061 BPM P-R Int : 154 ms QRS Dur : 084 ms QT Int : 402 ms P-R-T Axes : 038 012 014 degrees QTc Int : 404 ms NORMAL SINUS RHYTHM NORMAL ECG WHEN COMPARED WITH ECG OF 12-MAY-2016 11:08, NO SIGNIFICANT CHANGE WAS FOUND Confirmed by Luan Angela MD ([id number]) on 10/18/2017 4:26:57 PM Referred By: Confirmed By:Luan Angela MD
[2017-10-18] MEDS: ATORVASTATIN CA 20 MG TABLET (FP) PO SCH (21:21)
[2017-10-19] MEDS ORDERED: ACETAMINOPHEN 325 MG TABLET (FP) ONE (09:22)
--- NOTE | 2017-10-19 09:47 | PN ---
Progress Note, Physician History of Present Illness: The patient is a 58 year old male, with a significant past medical history of hypertension, CAD s/p stents x4, hyperlipidemia, who presents to the emergency department with chest pain since waking up this morning. He reports the pain is 7/10, constant, pressure to his chest. He reports his pain is exacerbated with activity and deep inspiration. He states this pain is not similar to his previous experience of chest pain leading up to his stent placements. He denies pain radiation into his neck or arms. The patient denies shortness of breath, headache and dizziness. The patient denies fever, chills, nausea, vomit, diarrhea and constipation.The patient denies dysuria, frequency, urgency and hematuria. Allergies: NKDA Past surgical history: stent x4 Social history: occasional beer. No illicit drugs or tobacco. PCP - Dr. Jessica Castillo Windows And Doors Installer: Dr. Cahdwick - Current Medication List Current Medications: Active Medications Aspirin (Asa -) 81 mg PO DAILY [facility] Last Admin: 10/18/17 13:43 Dose: 81 mg Atorvastatin Calcium (Lipitor -) 60 mg PO HS [facility] Last Admin: 10/18/17 21:21 Dose: 60 mg Clopidogrel Bisulfate (Plavix -) 75 mg PO DAILY [facility] Last Admin: 10/18/17 13:43 Dose: 75 mg Metoprolol Succinate (Toprol Xl -) 25 mg PO DAILY [facility] Last Admin: 10/18/17 13:43 Dose: 25 mg Morphine Sulfate (Morphine Sulfate) 4 mg IVPUSH Q6H PRN PRN Reason: PAIN LEVEL 7 - 10 Last Admin: 10/18/17 03:20 Dose: 4 mg - Objective Vital Signs: Vital Signs Temperature 97.8 F 10/19/17 06:00 Pulse Rate 54 L 10/19/17 06:00 Respiratory Rate 20 10/19/17 06:00 Blood Pressure 155/70 10/19/17 06:00 O2 Sat by Pulse Oximetry (%) 99 10/19/17 01:57 Eyes: Yes: WNL, Conjunctiva Clear, EOM Intact HENT: Yes: WNL, Atraumatic, Normocephalic Neck: Yes: WNL, Supple, Trachea Midline Cardiovascular: Yes: WNL, Regular Rate and Rhythm Respiratory: Yes: WNL, Regular, CTA Bilaterally Gastrointestinal: Yes: WNL, Normal Bowel Sounds Genitourinary: Yes: WNL Musculoskeletal: Yes: WNL Extremities: Yes: WNL Edema: No Integumentary: Yes: WNL Neurological: Yes: WNL, Alert, Oriented ...Motor Strength: WNL Psychiatric: Yes: WNL Labs: CBC, BMP 10/18/17 06:25 10/18/17 06:25 INR, PTT INR 1.04 (0.83-1.09) 10/17/17 20:20 Assessment/Plan hypertension, CAD s/p stents x4, hyperlipidemia, who presents to the emergency department with chest pain r/o mi neg MIBI st anterior-apical wall ischemia plan cont dapt bb telemetry c. Cath 10-21-17
[2017-10-19] MEDS: metoPROLOL SUCCINATE 25 MG TAB.SR.24H (FP) PO SCH (10:17)
[2017-10-19] MEDS: CLOPIDOGREL BISULFATE 75 MG TABLET (FP) PO SCH (10:17)
[2017-10-19] MEDS: ASPIRIN 81 MG CHEWABLE TABLETS PO SCH (10:17)
--- NOTE | 2017-10-19 20:31 | PN ---
Progress Note (short form) - Note Progress Note: Progress Note, Physician Chief Complaint: has mild chest discomfort at times, no SOB abnormal stress test Current Medications Generic Name Dose Route Start Last Admin Trade Name Emilee PRN Reason Stop Dose Admin Aspirin 81 mg 10/18/17 10:00 10/19/17 10:17 Asa - PO 81 mg DAILY [facility]O Administration Atorvastatin Calcium 60 mg 10/18/17 22:00 10/18/17 21:21 Lipitor - PO 60 mg HS MAXIMIL[facility]O Administration Clopidogrel Bisulfate 75 mg 10/18/17 10:00 10/19/17 10:17 Plavix - PO 75 mg DAILY MAXIMIL[facility]O Administration Metoprolol Succinate 25 mg 10/18/17 10:00 10/19/17 10:17 Toprol Xl - PO 25 mg DAILY MAXIMIL[facility]O Administration Morphine Sulfate 4 mg 10/18/17 02:29 10/18/17 03:20 Morphine Sulfate IVPUSH 4 mg Q6H PRN Administration PAIN LEVEL 7 - 10 - Objective Vital Signs - 24 hr 10/19/17 10/19/17 10/19/17 01:44 01:57 06:00 Temperature 98.7 F 97.8 F Pulse Rate 83 54 L Respiratory 16 20 20 Rate Blood Pressure 135/72 155/70 O2 Sat by Pulse 99 Oximetry (%) 10/19/17 10/19/17 10/19/17 10:15 14:15 17:00 Temperature 98 F 98.2 F 98.0 F Pulse Rate 62 60 61 Respiratory 20 20 18 Rate Blood Pressure 150/70 132/58 146/65 O2 Sat by Pulse 99 Oximetry (%) 10/19/17 20:22 Temperature Pulse Rate Respiratory Rate Blood Pressure O2 Sat by Pulse 96 Oximetry (%) Constitutional: Yes: No Distress Cardiovascular: Yes: Regular Rate and Rhythm, systolic murmur+ Respiratory: Yes: CTA Bilaterally Gastrointestinal: Yes: Normal Bowel Sounds, Soft. No: Tenderness Edema: No Labs: Problem List - Problems (1) Aortic stenosis Code(s): I35.0 - NONRHEUMATIC AORTIC (VALVE) STENOSIS (2) CAD (coronary artery disease) Code(s): I25.10 - ATHSCL HEART DISEASE OF [place] CORONARY ARTERY W/O ANG PCTRS (3) Chest pain Code(s): R07.9 - CHEST PAIN, UNSPECIFIED Qualifiers: Chest pain type: chest pain on breathing Qualified Code(s): R07.1 - Chest pain on breathing; R07.81 - Pleurodynia (4) Hyperlipidemia Code(s): E78.5 - HYPERLIPIDEMIA, UNSPECIFIED (5) Hypertension Code(s): I10 - ESSENTIAL (PRIMARY) HYPERTENSION Qualifiers: Hypertension type: essential hypertension Qualified Code(s): I10 - Essential (primary) hypertension Assessment/Plan Cardiac enzymes negative Continue with meds cardiology eval noted Stress test abnormal - for transfer to cath Problem List - Problems (1) Aortic stenosis Code(s): I35.0 - NONRHEUMATIC AORTIC (VALVE) STENOSIS (2) CAD (coronary artery disease) Code(s): I25.10 - ATHSCL HEART DISEASE OF [place] CORONARY ARTERY W/O ANG PCTRS (3) Chest pain Code(s): R07.9 - CHEST PAIN, UNSPECIFIED Qualifiers: Chest pain type: chest pain on breathing Qualified Code(s): R07.1 - Chest pain on breathing; R07.81 - Pleurodynia (4) Hyperlipidemia Code(s): E78.5 - HYPERLIPIDEMIA, UNSPECIFIED (5) Hypertension Code(s): I10 - ESSENTIAL (PRIMARY) HYPERTENSION Qualifiers: Hypertension type: essential hypertension Qualified Code(s): I10 - Essential (primary) hypertension
[2017-10-19] MEDS: ATORVASTATIN CA 20 MG TABLET (FP) PO SCH (21:19)
[2017-10-20] MEDS: ASPIRIN 81 MG CHEWABLE TABLETS PO SCH (09:29)
[2017-10-20] MEDS: CLOPIDOGREL BISULFATE 75 MG TABLET (FP) PO SCH (09:29)
[2017-10-20] MEDS: metoPROLOL SUCCINATE 25 MG TAB.SR.24H (FP) PO SCH (09:29)
--- NOTE | 2017-10-20 12:18 | PN ---
Progress Note (short form) - Note Progress Note: Progress Note, Physician Chief Complaint: has mild chest discomfort at times, no SOB abnormal stress test Current Medications Generic Name Dose Route Start Last Admin Trade Name Emilee PRN Reason Stop Dose Admin Aspirin 81 mg 10/18/17 10:00 10/20/17 09:29 Asa - PO 81 mg DAILY [facility]IM[facility]O Administration Atorvastatin Calcium 60 mg 10/18/17 22:00 10/19/17 21:19 Lipitor - PO 60 mg HS [facility]O Administration Clopidogrel Bisulfate 75 mg 10/18/17 10:00 10/20/17 09:29 Plavix - PO 75 mg DAILY [facility]O Administration Metoprolol Succinate 25 mg 10/18/17 10:00 10/20/17 09:29 Toprol Xl - PO 25 mg DAILY MAXIMIL[facility]O Administration Morphine Sulfate 4 mg 10/18/17 02:29 10/18/17 03:20 Morphine Sulfate IVPUSH 4 mg Q6H PRN Administration PAIN LEVEL 7 - 10 Constitutional: Yes: No Distress Cardiovascular: Yes: Regular Rate and Rhythm, systolic murmur+ Respiratory: Yes: CTA Bilaterally Gastrointestinal: Yes: Normal Bowel Sounds, Soft. No: Tenderness Edema: No Labs: Problem List - Problems (1) Aortic stenosis Code(s): I35.0 - NONRHEUMATIC AORTIC (VALVE) STENOSIS (2) CAD (coronary artery disease) Code(s): I25.10 - ATHSCL HEART DISEASE OF [place] CORONARY ARTERY W/O ANG PCTRS (3) Chest pain Code(s): R07.9 - CHEST PAIN, UNSPECIFIED Qualifiers: Chest pain type: chest pain on breathing Qualified Code(s): R07.1 - Chest pain on breathing; R07.81 - Pleurodynia (4) Hyperlipidemia Code(s): E78.5 - HYPERLIPIDEMIA, UNSPECIFIED (5) Hypertension Code(s): I10 - ESSENTIAL (PRIMARY) HYPERTENSION Qualifiers: Hypertension type: essential hypertension Qualified Code(s): I10 - Essential (primary) hypertension Assessment/Plan Cardiac enzymes negative Continue with meds cardiology eval noted Stress test abnormal - for transfer to cath tomorrow OOB Problem List - Problems (1) Aortic stenosis Code(s): I35.0 - NONRHEUMATIC AORTIC (VALVE) STENOSIS (2) CAD (coronary artery disease) Code(s): I25.10 - ATHSCL HEART DISEASE OF [place] CORONARY ARTERY W/O ANG PCTRS (3) Chest pain Code(s): R07.9 - CHEST PAIN, UNSPECIFIED Qualifiers: Chest pain type: chest pain on breathing Qualified Code(s): R07.1 - Chest pain on breathing; R07.81 - Pleurodynia (4) Hyperlipidemia Code(s): E78.5 - HYPERLIPIDEMIA, UNSPECIFIED (5) Hypertension Code(s): I10 - ESSENTIAL (PRIMARY) HYPERTENSION Qualifiers: Hypertension type: essential hypertension Qualified Code(s): I10 - Essential (primary) hypertension
--- NOTE | 2017-10-20 13:58 | PN ---
Progress Note, Physician Chief Complaint: A&Ox3; asymptomatic; ambulates down the hallway. History of Present Illness: The patient is a 58 year old male, with a significant past medical history of hypertension, CAD s/p stents x4, hyperlipidemia, who presents to the emergency department with chest pain since waking up this morning. He reports the pain is 7/10, constant, pressure to his chest. He reports his pain is exacerbated with activity and deep inspiration. He states this pain is not similar to his previous experience of chest pain leading up to his stent placements. He denies pain radiation into his neck or arms. The patient denies shortness of breath, headache and dizziness. The patient denies fever, chills, nausea, vomit, diarrhea and constipation.The patient denies dysuria, frequency, urgency and hematuria. Allergies: NKDA Past surgical history: stent x4 Social history: occasional beer. No illicit drugs or tobacco. PCP - Dr. Jessica Castillo Deep Submergence Vehicle Crewmember: Dr. Chadwick - Current Medication List Current Medications: Active Medications Aspirin (Asa -) 81 mg PO DAILY [facility] Last Admin: 10/20/17 09:29 Dose: 81 mg Atorvastatin Calcium (Lipitor -) 60 mg PO HS [facility] Last Admin: 10/19/17 21:19 Dose: 60 mg Clopidogrel Bisulfate (Plavix -) 75 mg PO DAILY [facility] Last Admin: 10/20/17 09:29 Dose: 75 mg Metoprolol Succinate (Toprol Xl -) 25 mg PO DAILY [facility] Last Admin: 10/20/17 09:29 Dose: 25 mg Morphine Sulfate (Morphine Sulfate) 4 mg IVPUSH Q6H PRN PRN Reason: PAIN LEVEL 7 - 10 Last Admin: 10/18/17 03:20 Dose: 4 mg - Objective Vital Signs: Vital Signs Temperature 98.2 F 10/20/17 01:12 Pulse Rate 54 L 10/20/17 01:12 Respiratory Rate 18 10/20/17 01:12 Blood Pressure 153/57 10/20/17 01:12 O2 Sat by Pulse Oximetry (%) 96 10/19/17 20:22 Constitutional: Yes: Well Nourished, Anxious Eyes: Yes: WNL HENT: Yes: WNL Neck: Yes: WNL Cardiovascular: Yes: WNL Respiratory: Yes: WNL Gastrointestinal: Yes: WNL ...Rectal Exam: Yes: Deferred Genitourinary: No: Anuria Breast(s): Yes: WNL Musculoskeletal: Yes: WNL Extremities: Yes: WNL Edema: No Peripheral Pulses WNL: Yes Integumentary: Yes: WNL Neurological: Yes: WNL ...Motor Strength: WNL Psychiatric: Yes: WNL Labs: CBC, BMP 10/18/17 06:25 10/18/17 06:25 INR, PTT INR 1.04 (0.83-1.09) 10/17/17 20:20 Problem List - Problems (1) Anxiety Code(s): F41.9 - ANXIETY DISORDER, UNSPECIFIED (2) Chest pain Assessment/Plan: Stress MIBI: moderate sized, mild-moderate intensity distal anterior and apical myocardial ischedmia. Pt will be transferred to [facility] for coronary angiogram. Code(s): R07.9 - CHEST PAIN, UNSPECIFIED Qualifiers: Chest pain type: chest pain on breathing Qualified Code(s): R07.1 - Chest pain on breathing; R07.81 - Pleurodynia (3) CAD (coronary artery disease) Code(s): I25.10 - ATHSCL HEART DISEASE OF [place] CORONARY ARTERY W/O ANG PCTRS (4) Hyperlipidemia Code(s): E78.5 - HYPERLIPIDEMIA, UNSPECIFIED (5) Hypertension Code(s): I10 - ESSENTIAL (PRIMARY) HYPERTENSION Qualifiers: Hypertension type: essential hypertension Qualified Code(s): I10 - Essential (primary) hypertension
[2017-10-20] MEDS: ATORVASTATIN CA 20 MG TABLET (FP) PO SCH (21:51)
[2017-10-21 08:54] VITALS: BP 129/88; PULSE 60; TEMP 98.6
--- NOTE | 2017-10-21 09:16 | PN ---
Progress Note, Physician Chief Complaint: A&Ox3;pt had mild central chest pressure at rest last night that lasted less than 30 seconds. Able to ambulate today without symjptoms. History of Present Illness: The patient is a 58 year old male, with a significant past medical history of hypertension, CAD s/p stents x4, hyperlipidemia, who presents to the emergency department with chest pain since waking up this morning. He reports the pain is 7/10, constant, pressure to his chest. He reports his pain is exacerbated with activity and deep inspiration. He states this pain is not similar to his previous experience of chest pain leading up to his stent placements. He denies pain radiation into his neck or arms. The patient denies shortness of breath, headache and dizziness. The patient denies fever, chills, nausea, vomit, diarrhea and constipation.The patient denies dysuria, frequency, urgency and hematuria. Allergies: NKDA Past surgical history: stent x4 Social history: occasional beer. No illicit drugs or tobacco. PCP - Dr. Jessica Castillo Steel Die Engraver: Dr. Chadwick - Current Medication List Current Medications: Active Medications Aspirin (Asa -) 81 mg PO DAILY [facility] Last Admin: 10/20/17 09:29 Dose: 81 mg Atorvastatin Calcium (Lipitor -) 60 mg PO HS [facility] Last Admin: 10/20/17 21:51 Dose: 60 mg Clopidogrel Bisulfate (Plavix -) 75 mg PO DAILY [facility] Last Admin: 10/20/17 09:29 Dose: 75 mg Metoprolol Succinate (Toprol Xl -) 25 mg PO DAILY [facility] Last Admin: 10/20/17 09:29 Dose: 25 mg - Objective Vital Signs: Vital Signs Temperature 98.6 F 10/21/17 08:53 Pulse Rate 60 10/21/17 08:53 Respiratory Rate 18 10/21/17 08:53 Blood Pressure 129/88 10/21/17 08:53 O2 Sat by Pulse Oximetry (%) 99 10/21/17 08:53 Constitutional: Yes: Calm Eyes: Yes: WNL HENT: Yes: WNL Neck: Yes: WNL Cardiovascular: Yes: Regular Rate and Rhythm Respiratory: Yes: WNL Gastrointestinal: Yes: WNL ...Rectal Exam: Yes: Deferred Genitourinary: Yes: WNL Breast(s): Yes: WNL Musculoskeletal: Yes: WNL Extremities: Yes: WNL Edema: No Peripheral Pulses WNL: Yes Integumentary: Yes: WNL Neurological: Yes: WNL ...Motor Strength: WNL Psychiatric: Yes: WNL Labs: CBC, BMP 10/18/17 06:25 10/18/17 06:25 INR, PTT INR 1.04 (0.83-1.09) 10/17/17 20:20 - ....Imaging Other: Image Reviewed (NSR; occasional PVCs) Problem List - Problems (1) Anxiety Code(s): F41.9 - ANXIETY DISORDER, UNSPECIFIED (2) Chest pain Assessment/Plan: Stress MIBI: moderate sized, mild-moderate intensity distal anterior and apical myocardial ischedmia. Pt will be transferred to [facility] for coronary angiogram today. Continue metoprolol, atorvastatinj, ASA, clopidogrel. Code(s): R07.9 - CHEST PAIN, UNSPECIFIED Qualifiers: Chest pain type: chest pain on breathing Qualified Code(s): R07.1 - Chest pain on breathing; R07.81 - Pleurodynia (3) CAD (coronary artery disease) Code(s): I25.10 - ATHSCL HEART DISEASE OF [place] CORONARY ARTERY W/O ANG PCTRS (4) Hyperlipidemia Code(s): E78.5 - HYPERLIPIDEMIA, UNSPECIFIED (5) Hypertension Code(s): I10 - ESSENTIAL (PRIMARY) HYPERTENSION Qualifiers: Hypertension type: essential hypertension Qualified Code(s): I10 - Essential (primary) hypertension
[2017-10-21] MEDS: metoPROLOL SUCCINATE 25 MG TAB.SR.24H (FP) PO SCH (10:20)
[2017-10-21] MEDS: CLOPIDOGREL BISULFATE 75 MG TABLET (FP) PO SCH (10:20)
[2017-10-21] MEDS: ASPIRIN 81 MG CHEWABLE TABLETS PO SCH (10:20)
== END 2017-10-21 10:54 | disposition short-term general hospital (02) ==
LOC: JER 18:00 → JERBED 23:53 → J4W 10-18 18:25
PROVIDERS: ADMIT Internal Medicine; ATTEND Internal Medicine
PROC: 3E033NZ Introduction of Analgesics, Hypnotics, Sedatives into Peripheral Vein, Percutaneous Approach (ICD-10-PCS; principal; 2017-10-17)
PROC: 3E033GC Introduction of Other Therapeutic Substance into Peripheral Vein, Percutaneous Approach (ICD-10-PCS; 2017-10-17)
DX: R07.1 Chest pain on breathing (principal); I10 Essential (primary) hypertension; I25.10 Atherosclerotic heart disease of native coronary artery without angina pectoris; I25.2 Old myocardial infarction; I35.0 Nonrheumatic aortic (valve) stenosis; E78.5 Hyperlipidemia, unspecified; R01.1 Cardiac murmur, unspecified; F41.9 Anxiety disorder, unspecified; F32.9 Major depressive disorder, single episode, unspecified
CPT/HCPCS: 36415; 71045-TC-FY; 78452-TC; 80048; 80053; 80061; 82550; 82553; 83721; 83735; 83880; 84100; 84443; 84484; 85025; 85610; 93005; 93010; 93017; 93306-TC; 96374; 96375; 99285-25; A9502; G0378; J2785

== ENCOUNTER 2019-10-25 15:19 | Observation (INO) | payer OTHER ==
--- NOTE | 2019-10-25 15:53 | PDOC ---
History of Present Illness - General Chief Complaint: Chest Pain Stated Complaint: CHEST PAIN History Source: Patient Exam Limitations: No Limitations - History of Present Illness Initial Comments: 10/25/19 15:52 Librado Morales is a 59M with PMH CAD s/p stenting () on ASA/Plavix, HTN, HLD, rheumatic fever, sent by Dr. Chadwick for evaluation for chest pain. Patient has been having intermittent chest pain with heavy lifting, last week was carrying something up the stairs when he had a pressure-like chest pain that resolved. Today reports waking up, then feeling pressure-like deep chest pain in his left upper chest similar to prior angina before stenting, worse with movement, comes and goes throughout the day. Denies symptoms while in ED, no palpitations, SOB, cough, fever, abd pain, urinary sx, diarrhea. No sick contacts. No recent covid-19 exposure. Non-smoker, no drugs, no alcohol recently. NKDA. Past History - Medical History Allergies/Adverse Reactions: Allergies Allergy/AdvReac Type Severity Reaction Status Date / Time No Known Allergies Allergy Verified 10/17/17 18:05 Home Medications: Ambulatory Orders Clopidogrel Bisulfate [Plavix -] 75 mg PO DAILY 07/23/11 Aspirin [ASA -] 81 mg PO DAILY 05/08/14 Atorvastatin Ca [Lipitor] 60 mg PO HS #60 tablet 05/22/14 Metoprolol Succinate [Toprol XL -] 25 mg PO DAILY #60 tab.sr.24h 05/22/14 Cardiac Disorders: Yes (CAD, 4 STENTS) COPD: No HTN: Yes Hypercholesterolemia: Yes - Surgical History Cardiac Surgery: Yes (STENT X 4) - Psycho-Social/Smoking History Smoking Status: Yes Smoking History: Never smoked Have you smoked in the past 12 months: No Number of Cigarettes Smoked Daily: 0 Information on smoking cessation initiated: No 'Breaking Loose' booklet given: 07/30/13 - Substance Abuse Hx (Audit-C & DAST Scrn) How often the patient has a drink containing alcohol: Never Score: In Men: 4 or > Positive; In Women: 3 or > Positive: 0 Screen Result (Pos requires Nsg. Audit-10AR): Negative Review of Systems - Review of Systems Able to Perform ROS?: Yes Constitutional: No: Symptoms Reported HEENTM: No: Symptoms Reported Respiratory: Yes: SOB with Exertion. No: Cough, Productive cough Cardiac (ROS): Yes: Chest Pain, Chest Tightness. No: Irregular Heart Rate, Lightheadedness, Palpitations, Syncope ABD/GI: No: Symptoms Reported : No: Symptoms Reported Musculoskeletal: No: Symptoms Reported Integumentary: No: Symptoms Reported Neurological: No: Symptoms reported Endocrine: No: Symptoms Reported Hematologic/Lymphatic: No: Symptoms Reported All Other Systems: Reviewed and Negative *Physical Exam - Vital Signs Last Vital Signs Temp Pulse Resp BP Pulse Ox 97.8 F 62 16 134/46 L 97 10/25/19 15:26 10/25/19 15:26 10/25/19 15:26 10/25/19 15:26 10/25/19 15:26 - Physical Exam General Appearance: Yes: Nourished, Appropriately Dressed. No: Apparent Distress HEENT: positive: EOMI, MARIUSZ, Normal Voice, Symmetrical, Pharynx Normal, Hearing Grossly Normal. negative: Scleral Icterus (R), Scleral Icterus (L), Pharyngeal Erythema, Tonsillar Exudate, Tonsillar Erythema Neck: positive: Trachea midline, Normal Thyroid, Supple. negative: Tender, Rigid, Lymphadenopathy (R), Lymphadenopathy (L), Rigidity, Tender lateral, Tender midline Respiratory/Chest: positive: Lungs Clear, Normal Breath Sounds. negative: Chest Tender, Respiratory Distress, Accessory Muscle Use, Labored Respiration, Crackles, Rales, Rhonchi, Stridor, Wheezing Cardiovascular: positive: Regular Rhythm, Regular Rate, Murmur (diastolic murmur). negative: Tachycardia Gastrointestinal/Abdominal: positive: Normal Bowel Sounds, Flat, Soft. negative: Tender, Organomegaly, Protuberent, Distended, Guarding, Rebound, Mohan ia Musculoskeletal: positive: Normal Inspection. negative: CVA Tenderness, Decreased Range of Motion, Vertebral Tenderness Extremity: positive: Normal Capillary Refill, Normal Inspection, Normal Range of Motion, Pelvis Stable. negative: Tender, Pedal Edema, Swelling, Calf Tenderness Integumentary: positive: Normal Color, Dry, Warm Neurologic: positive: Fully Oriented, Normal Mood/Affect, Normal Response Heart Score/ECG Review - History History: Highly suspicious - Electrocardiogram EKG: Normal - Age Age: 45-65 - Risk Factors Risk Factors Heart Score: Yes Hx Hypercholesterolemia, Yes Hx Hypertension, Yes Hx Obesity Based on the list above the patient has:: >/=3 risk factors or Hx atherosclerotic disease - Troponin Troponin: </= normal limit - Score Heart Score - Total: 5 ED Treatment Course - LABORATORY CBC & Chemistry Diagram: 10/25/19 15:45 10/25/19 15:45 Medical Decision Making - Medical Decision Making 10/25/19 18:48 Patient has known history of CAD s/p multiple stents here for new onset chest pain today similar to prior stable angina, sent by Dr. Chadwick for cardiac evaluation. High suspicion of ACS vs. PNA vs. MSK pain given history. Ordered CMP/CBC/CP/ECG/CXR/covid-19 for evaluation of ACS. Initial ECG had artifact with inverted P waves and was repeated. Current ECG shows sinus bradycardia with HR 56, QTc 403, no MALIKA/D or TWI. CXR unremarkable, no interval changes from prior. Labs notable for: - CBC WNL - CMP WNL - CP WNL Given known history of CAD, merits admit for tele/obs for cardiac monitoring. 10/25/19 19:[address] Hartley with night team, tele/obs admit. Discharge - Discharge Information Problems reviewed: Yes Clinical Impression/Diagnosis: Chest pain Qualifiers: Chest pain type: unspecified Qualified Code(s): R07.9 - Chest pain, unspecified Condition: Stable - Admission Yes - Follow up/Referral Referrals: Rian Castillo MD [Primary Care Provider] - - Patient Discharge Instructions - Post Discharge Activity
[2019-10-25 16:14] LABS: BASO % 0.5 % (0-2.0); EOS % 2.6 % (0-4.5); HEMATOCRIT 45.1 % (35.4-49); HEMOGLOBIN 15.3 GM/dL (11.7-16.9); LYMPH % 26.8 % (8-40); MCH 30.2 pg (25.7-33.7); MCHC 33.9 g/dl (32.0-35.9); MEAN PLT VOLUME 8.8 fl (7.5-11.1); MONO % 8.6 % (3.8-10.2); NEUT % 61.5 % (42.8-82.8); PLATELET COUNT 183 K/MM3 (134-434); RBC 5.06 M/mm3 (4.00-5.60); RDW 13.7 % (11.9-15.9)
[2019-10-25] MEDS ORDERED: ASPIRIN 81 MG CHEWABLE TABLETS PO ONE (16:18)
[2019-10-25] MEDS ORDERED: ASPIRIN 81 MG CHEWABLE TABLETS ONE (16:29)
[2019-10-25 16:38] LABS: ALBUMIN 3.9 g/dl (3.4-5.0); ALK PHOS 70 U/L (45-117); ANION GAP 5 MMOL/L (8-16); BILIRUBIN,TOTAL 0.5 mg/dL (0.2-1); BLOOD UREA NITROGEN 30.6 mg/dL (7-18); CHLORIDE 110 mmol/L (98-107); CO2 29 mmol/L (21-32); CREATININE 1.1 mg/dL (0.55-1.3); GLUCOSE,RANDOM 90 mg/dL (74-106); N-TERMINAL BNP 108.2 pg/ml (5-125); POTASSIUM 3.9 mmol/L (3.5-5.1); SGOT/AST 18 U/L (15-37); SGPT/ALT 28 U/L (13-61); SODIUM 143 mmol/L (136-145); TOT PROT 6.9 g/dl (6.4-8.2)
--- NOTE | 2019-10-25 18:46 | PDOC ---
Documentation entered by Isidro Bonilla SCRIBE, acting as scribe for Sole Segal MD. Sole Segal MD: This documentation has been prepared by the Chad cohen Xhesika, SCRIBE, under my direction and personally reviewed by me in its entirety. I confirm that the documentation accurately reflects all work, treatment, procedures, and medical decision making performed by me. Attending Attestation - Resident Resident Name: Ajay Murray - ED Attending Attestation I have performed the following: I have examined & evaluated the patient, The case was reviewed & discussed with the resident, I agree w/resident's findings & plan, Exceptions are as noted - HPI HPI: 10/25/19 17:32 The patient is a 59 year old male, with a significant past medical history of hypertension, CAD s/p stents x4, hyperlipidemia, HTN who presents to the emergency department with midsternal chest pain. Pt states he was lifting something heavy last week and endorsed chest pain. Pt states he woke up this morning with the pain again, worse with movement, called Dr. Chadwick, and was advised to come to the ED. The patient denies shortness of breath, headache and dizziness. The patient denies fever, chills, nausea, vomit, diarrhea and constipation.The patient denies dysuria, frequency, urgency and hematuria. Allergies: NKDA Past surgical history: stent x6 PCP: Dr. Jessica Castillo - Physicial Exam PE: 10/25/19 17:47 General: well appearing Chest: CTAB, good air entry, no wheezes rales or rhonchi CVS: + s1 s2, +diastolic murmur - Medical Decision Making 10/25/19 17:49 59 yo M with chest pain, EKG no ST elevations however states feels similar to when he had stents placed in the past, concerning for ACS, less likely PNA as no infectious complaints. Also doubt PE as no SOB and patient not tachy and with good O2 sat. Plan: -labs -cxr -asa -admit tele obs This clinical encounter is taking place during a federal and state health care emergency attributable to the novel [place] Virus pandemic. The [employer] of the Department of Health and Human Services has declared, pursuant to the Public Health Service Act 319F-3 (42 U.S.C. 247d-6d), that a covered persons activities related to medical countermeasures against COVID-19 will be immune from liability under Federal and State law. Discharge - Discharge Information Problems reviewed: Yes Clinical Impression/Diagnosis: Chest pain Qualifiers: Chest pain type: unspecified Qualified Code(s): R07.9 - Chest pain, unspecified Condition: Stable - Follow up/Referral - Patient Discharge Instructions - Post Discharge Activity
--- NOTE | 2019-10-25 19:18 | CON.CARD ---
Consult Consult Specialty:: cardiology Reason for Consultation:: chest pain - History of Present Illness Chief Complaint: Pt A&Ox3; intermittent chest pain when moves left shoulder; c entral chest pressure at rest History of Present Illness: Mr. Morales is a 59yo man with PMH CAD s/p stenting (; in 10/2017 and 11/2017, had + stress MIBI with stents of proximal and mid Cx, proximal and distal LAD) on ASA/Plavix, normal LVEF with moderately severe Aortic stenosis, HTN, HLD, rheumatic fever, now c/p of chest pain and pressure. Patient has been having intermittent sharp and achy chest pain with heavy lifting, last week was carrying something up the stairs when he had a pressure- like chest pain that resolved. Today reports waking up, then feeling pressure- like deep chest pain in his left upper chest similar to prior angina before stenting, worse with movement, comes and goes throughout the day. Denies symptoms while in ED, no palpitations, SOB, cough, fever, abd pain, urinary sx, diarrhea. No sick contacts. No recent covid-19 exposure. Non-smoker, no drugs, no alcohol recently. NKDA. - History Source History Provided By: Patient, Medical Record Limitations to Obtaining History: No Limitations - Past Medical History Cardio/Vascular: Yes: CAD, HTN, Hyperlipdemia, [place], Murmur Infectious Disease: Yes: Other (R/O hx Rheumatic fever) Psych: Yes: Anxiety, Depression - Past Surgical History Past Surgical History: Yes: Stent (several coronary stents) - Alcohol/Substance Use Hx Alcohol Use: No History of Substance Use: reports: None - Smoking History Smoking history: Never smoked Have you smoked in the past 12 months: No Aproximately how many cigarettes per day: 0 - Social History ADL: Independent Occupation: Retired, Disabled History of Recent Travel: No Home Medications - Allergies Allergies/Adverse Reactions: Allergies Allergy/AdvReac Type Severity Reaction Status Date / Time shellfish derived Allergy Unknown Hives Verified 10/26/19 04:43 - Home Medications Home Medications: Ambulatory Orders Clopidogrel Bisulfate [Plavix -] 75 mg PO DAILY 07/23/11 Aspirin [ASA -] 81 mg PO DAILY 05/08/14 Atorvastatin Ca [Lipitor] 60 mg PO HS #60 tablet 05/22/14 Metoprolol Succinate [Toprol XL -] 25 mg PO DAILY #60 tab.sr.24h 05/22/14 - Risk Factors Known Risk Factors: Yes: Age, Gender, Hypercholesterolemia, Hypertension, Smoking (former) Vital Signs: Vital Signs Temperature 97.8 F 10/25/19 15:26 Pulse Rate 60 10/25/19 16:35 Respiratory Rate 18 10/25/19 16:35 Blood Pressure 121/63 10/25/19 16:35 O2 Sat by Pulse Oximetry (%) 98 10/25/19 16:50 Constitutional: Yes: Anxious Eyes: Yes: WNL HENT: Yes: WNL Neck: Yes: WNL - Other Data Labs, Other Data: CBC, BMP 10/25/19 15:45 10/25/19 15:45 Troponin, BNP 10/25/19 15:45 Troponin I < 0.02 B-Natriuretic Peptide 108.2 Troponin, BNP 10/25/19 15:45 Troponin I < 0.02 B-Natriuretic Peptide 108.2 Assessment/Plan Chest pressure Hx multiple coronary stents normal LVEF with moderately severe aortic stenosis HTN HLD overweight Plan: TNI serially EKG Metoprolol, Imdur, ASA, Plavix, atorvastatin. ECHO for LVEF, assessment of aortic valve Stress MIBI if TNI remains "normal".
--- NOTE | 2019-10-25 19:25 | PDOC ---
*Physical Exam - Vital Signs Last Vital Signs Temp Pulse Resp BP Pulse Ox 97.8 F 60 18 121/63 98 10/25/19 15:26 10/25/19 16:35 10/25/19 16:35 10/25/19 16:35 10/25/19 16:50 ED Treatment Course - LABORATORY CBC & Chemistry Diagram: 10/25/19 15:45 10/25/19 15:45 - ADDITIONAL ORDERS Additional order review: Laboratory Results 10/25/19 15:45 Sodium 143 Potassium 3.9 Chloride 110 H Carbon Dioxide 29 Anion Gap 5 L BUN 30.6 H Creatinine 1.1 Est GFR (CKD-EPI)AfAm 84.12 Est GFR (CKD-EPI)NonAf 72.58 Random Glucose 90 Calcium 9.0 Total Bilirubin 0.5 AST 18 ALT 28 Alkaline Phosphatase 70 Troponin I < 0.02 B-Natriuretic Peptide 108.2 Total Protein 6.9 Albumin 3.9 10/25/19 15:45 RBC 5.06 MCV 89.0 MCHC 33.9 RDW 13.7 MPV 8.8 Neutrophils % 61.5 Lymphocytes % 26.8 D Monocytes % 8.6 Eosinophils % 2.6 Basophils % 0.5 - Medications Given in the ED: ED Medications Discontinued Medications Generic Name Dose Route Start Last Admin Trade Name Freq PRN Reason Stop Dose Admin Aspirin 324 mg 10/25/19 16:18 10/25/19 16:35 Asa - PO 10/25/19 16:19 324 mg ONCE ONE Administration ED Progress Note - Progress Note Progress Note: 10/25/19 19:25 Accepted patient from day team at 7pm sign out. Pending tele-obs admission for chest pain. Discharge - Discharge Information Problems reviewed: Yes Clinical Impression/Diagnosis: Chest pain Qualifiers: Chest pain type: unspecified Qualified Code(s): R07.9 - Chest pain, unspecified Condition: Stable - Follow up/Referral Referrals: Rian Castillo MD [Primary Care Provider] - - Patient Discharge Instructions - Post Discharge Activity
[2019-10-25 20:26] LABS: CHOLESTEROL 174 mg/dL (50-200); HDL CHOLESTEROL 46 mg/dL (40-60); LDL CHOLESTEROL (ONLY SJRH) 103 mg/dL (5-100); TRIGLYCERIDES 189 mg/dL (0-150)
[2019-10-25] MEDS ORDERED: KETOROLAC TROMETHAMINE 15 MG/ML VIAL IVPUSH ONE (20:33)
[2019-10-25] MEDS ORDERED: ATORVASTATIN CA 20 MG TABLET (FP) ONE (21:55)
[2019-10-25] MEDS ORDERED: KETOROLAC TROMETHAMINE 30 MG/1 ML VIAL ONE (21:55)
[2019-10-25] MEDS ORDERED: ATORVASTATIN CA 20 MG TABLET (FP) PO SCH (22:00)
--- NOTE | 2019-10-25 23:07 | HP ---
CHIEF COMPLAINT:chest pressure PCP:Dr. Castillo Cardiology: Dr. Deleon HISTORY OF PRESENT ILLNESS: This is a 59 year old male with a past medical history of CAD s/p stenting (/2018) on asa, plavix, hypertension, hyperlipidemia, rheumatic fever, sent to ER Dr. Chadwick for evaluation for chest pain. He states he has been having intermittent chest pain when lifting heavy items like a case of water. He reports last week he was carrying something up the stairs when he had a pressure-like chest pain that resolved. Today he reports waking up, then feeling pressure-like deep chest pain in his left upper chest similar to when he had before his stents. He reports chest pressure is worse with movement and is intermittent throughout the day. Chest pain is not reproducible to palpation. He denied symptoms of palpitations, SOB, cough, fever, abdominal pain, urinary sym ptoms, diarrhea. He has had no sick contacts. No recent COVID-19 exposure. ER course notable for: normal troponin and BNP, D-Dimer 515 EKG- sinus rhythm, no acute ST changes or T wave inversions Recent Travel: no PAST MEDICAL HISTORY: hypertension hyperlipidemia CAD rheumatic fever PAST SURGICAL HISTORY: s/p cardiac stents Social History: Smoking:no Alcohol:no Drugs: no Family History father- stroke mother- hyperlipidemia, hypertension, thyroid and heart disease Allergies No Known Allergies Allergy (Verified 10/17/17 18:05) HOME MEDICATIONS: Home Medications Medication Instructions Recorded Clopidogrel Bisulfate [Plavix -] 75 mg PO DAILY 07/23/11 Aspirin [ASA -] 81 mg PO DAILY 05/08/14 Atorvastatin Ca [Lipitor] 60 mg PO HS #60 tablet 05/22/14 Metoprolol Succinate [Toprol XL -] 25 mg PO DAILY #60 tab.sr.24h 05/22/14 REVIEW OF SYSTEMS CONSTITUTIONAL: Absent: fever, chills, diaphoresis, generalized weakness, malaise, loss of appe tite, weight change HEENT: Absent: rhinorrhea, nasal congestion, throat pain, throat swelling, difficulty swallowing, mouth swelling, ear pain, eye pain, visual changes CARDIOVASCULAR: Absent: chest pain, syncope, palpitations, irregular heart rate, lightheadedness, peripheral edema RESPIRATORY: Absent: cough, shortness of breath, dyspnea with exertion, orthopnea, wheezing, stridor, hemoptysis GASTROINTESTINAL: Absent: abdominal pain, abdominal distension, nausea, vomiting, diarrhea, consti pation, melena, hematochezia GENITOURINARY: Absent: dysuria, frequency, urgency, hesitancy, hematuria, flank pain, genital pain MUSCULOSKELETAL: Absent: myalgia, arthralgia, joint swelling, back pain, neck pain SKIN: Absent: rash, itching, pallor HEMATOLOGIC/IMMUNOLOGIC: Absent: easy bleeding, easy bruising, lymphadenopathy, frequent infections ENDOCRINE: Absent: unexplained weight gain, unexplained weight loss, heat intolerance, cold intolerance NEUROLOGIC: Absent: headache, focal weakness or paresthesias, dizziness, unsteady gait, seizure, mental status changes, bladder or bowel incontinence PSYCHIATRIC: Absent: anxiety, depression, suicidal or homicidal ideation, hallucinations. PHYSICAL EXAMINATION Vital Signs - 24 hr 10/25/19 10/25/19 10/25/19 15:26 15:56 16:35 Temperature 97.8 F Pulse Rate 62 60 Pulse Rate [ 60 Apical] Respiratory 16 18 Rate Blood Pressure 134/46 L Blood Pressure 121/63 [Right Arm] O2 Sat by Pulse 97 98 98 Oximetry (%) 10/25/19 16:50 Temperature Pulse Rate Pulse Rate [ Apical] Respiratory Rate Blood Pressure Blood Pressure [Right Arm] O2 Sat by Pulse 98 Oximetry (%) General no acute distress Vital signs reviewed normotensive Neuor no focal deficits Neck no JVD Lungs CTA nonlabored breathing effort no rales no wheezing Heart s1s2 rate regular + murmur auscultated Abdomen soft nontender nondisteded Extremities warm to touch no pitting edema no cyanosis Skin nail beds and lips pink Mood calm Laboratory Results - last 24 hr 10/25/19 10/25/19 10/25/19 15:45 15:45 15:45 WBC 8.0 RBC 5.06 Hgb 15.3 Hct 45.1 MCV 89.0 MCH 30.2 MCHC 33.9 RDW 13.7 Plt Count 183 MPV 8.8 Absolute Neuts (auto) 4.9 Neutrophils % 61.5 Lymphocytes % 26.8 D Monocytes % 8.6 Eosinophils % 2.6 Basophils % 0.5 Nucleated RBC % 0 D-Dimer Sodium 143 Potassium 3.9 Chloride 110 H Carbon Dioxide 29 Anion Gap 5 L BUN 30.6 H Creatinine 1.1 Est GFR (CKD-EPI)AfAm 84.12 Est GFR (CKD-EPI)NonAf 72.58 Random Glucose 90 Hemoglobin A1c % 5.7 Calcium 9.0 Total Bilirubin 0.5 AST 18 ALT 28 Alkaline Phosphatase 70 Troponin I < 0.02 B-Natriuretic Peptide 108.2 Total Protein 6.9 Albumin 3.9 Triglycerides 189 H Cholesterol 174 Total LDL Cholesterol 103 H HDL Cholesterol 46 TSH 2.08 D 10/25/19 10/25/19 21:50 21:50 WBC RBC Hgb Hct MCV MCH MCHC RDW Plt Count MPV Absolute Neuts (auto) Neutrophils % Lymphocytes % Monocytes % Eosinophils % Basophils % Nucleated RBC % D-Dimer 515 H Sodium Potassium Chloride Carbon Dioxide Anion Gap BUN Creatinine Est GFR (CKD-EPI)AfAm Est GFR (CKD-EPI)NonAf Random Glucose Hemoglobin A1c % Calcium Total Bilirubin AST ALT Alkaline Phosphatase Troponin I < 0.02 B-Natriuretic Peptide Total Protein Albumin Triglycerides Cholesterol Total LDL Cholesterol HDL Cholesterol TSH ASSESSMENT/PLAN: Mr. Morales is a 59 year old male with a past medical history of coronary artery disease s/p stenting (/2018) (on asa, plavix), hypertension, hyperlipidemia, and rheumatic fever who was sent to ER by his Land Leveler Dr. Chadwick for evaluation for chest pain. He was found to have 2 normal troponins and BNP normal, and D-Dimer of 515.He is being admitted to the Medicine Team for a further cardiac evaluation. #1 Chest Pain/Rule Out ACS symptomatic, chest pain appear to have typical features has 2 normal troponin and BNP D-Dimer 515(slightly above normal), low suspicion for PE- has no tachycardia, hypoxia or shortness of breath EKG- sinus rhythm, no acute ST changes or T wave inversions Cardiology- Dr. Chadwick consulted- imdur was recommended c/w asa, plavix, metoprolol, imdur, and atorvastatin continue to trend troponins repeat EKG in am will keep NPO after midnight in case stress test is recommended tomorrow #2 Hypertension controlled c/w metoprolol and imdur #3 Hyperlipidemia TC 174,LDL 103, HDL 46, triglycerides 189 c/w atorvastatin 60mg daily DVT Prophlaxis c/w SCD's FEN no IV fluids indicated BMP daily, replete electrolytes as needed NPO after midnight Family Medical History Family History: As Documented Visit type - Emergency Visit Emergency Visit: Yes ED Registration Date: 10/25/19 Care time: The patient presented to the Emergency Department on the above date and was hospitalized for further evaluation of their emergent condition. - New Patient This patient is new to me today: Yes Date on this admission: 10/26/19 - Critical Care Critical Care patient: No
[2019-10-26 01:55] VITALS: BMI 26.9
[2019-10-26 06:57] LABS: HEMATOCRIT 42.7 % (35.4-49); HEMOGLOBIN 14.7 GM/dL (11.7-16.9); MCH 30.4 pg (25.7-33.7); MCHC 34.4 g/dl (32.0-35.9); MEAN CELL VOLUME 88.6 fl (80-96); MEAN PLT VOLUME 8.6 fl (7.5-11.1); PLATELET COUNT 159 K/MM3 (134-434); RBC 4.83 M/mm3 (4.00-5.60); WHITE BLOOD COUNT 7.7 K/mm3 (4.0-10.0)
[2019-10-26 07:34] LABS: ANION GAP 3 MMOL/L (8-16); CALCIUM 8.4 mg/dL (8.5-10.1); CHLORIDE 110 mmol/L (98-107); CO2 28 mmol/L (21-32); GLUCOSE,RANDOM 103 mg/dL (74-106); MAGNESIUM 2.3 mg/dL (1.8-2.4); POTASSIUM 3.9 mmol/L (3.5-5.1); SODIUM 141 mmol/L (136-145)
[2019-10-26] MEDS ORDERED: LIDOCAINE HCL 2% (20ML MULTI-DOSE VIAL) ONE (07:41)
[2019-10-26] MEDS ORDERED: REGADENOSON 0.4 MG/5 ML PRE-FILLED SYRINGE IVPUSH ONE ×2 (09:00→11:36)
[2019-10-26] MEDS ORDERED: ASPIRIN 81 MG CHEWABLE TABLETS PO SCH (10:00)
[2019-10-26] MEDS ORDERED: CLOPIDOGREL BISULFATE 75 MG TABLET (FP) PO SCH (10:00)
[2019-10-26] MEDS ORDERED: ISOSORBIDE MONONITRATE 30 MG TAB.SR.24H (FP) PO SCH (10:00)
--- NOTE | 2019-10-26 11:16 | DS ---
Physical Examination Vital Signs: Vital Signs Temperature 98.6 F 10/26/19 10:00 Pulse Rate 54 L 10/26/19 10:00 Respiratory Rate 10/26/19 10:00 Blood Pressure 148/62 10/26/19 10:00 O2 Sat by Pulse Oximetry (%) 100 10/26/19 10:00 Findings/Remarks: comfortable no complains Constitutional: Yes: No Distress Neck: Yes: Supple Cardiovascular: Yes: Regular Rate and Rhythm Gastrointestinal: Yes: Soft Edema: No Neurological: Yes: Alert Psychiatric: Yes: Alert Labs: CBC, BMP 10/26/19 06:21 10/26/19 06:21 Discharge Summary Problems reviewed: Yes Reason For Visit: CHEST PAIN Current Active Problems Chest pain (Acute) Hospital Course: Admitted for Cp NC ruled out Stress test today If -ve d/c home d/w RN also Meds reconciled/ prescribed as needed f/u in office in 2 weeks Condition: Stable - Instructions Referrals: Rian Castillo MD [Primary Care Provider] - Disposition: HOME - Home Medications Comprehensive Discharge Medication List: Ambulatory Orders Clopidogrel Bisulfate [Plavix -] 75 mg PO DAILY 07/23/11 Aspirin [ASA -] 81 mg PO DAILY 05/08/14 Atorvastatin Ca [Lipitor] 60 mg PO HS #60 tablet 05/22/14 Metoprolol Succinate [Toprol XL -] 25 mg PO DAILY #60 tab.sr.24h 05/22/14 Isosorbide Mononitrate [Imdur -] 30 mg PO DAILY #30 tab.sr.24h 10/26/19
--- NOTE | 2019-10-26 12:59 | ECHO ---
Name: NAINMEAGHANPATTI Exam:Adult Echocardiogram Study Date: 10/26/2019 08:58 AM Age: 59 yrs Reason For Study: Aortics Stenosis Height: 66 in Weight: 166 lb BSA: 1.8 m2 MMode/2D Measurements & Calculations IVSd: 1.2 cm Ao root diam: 4.4 cm LVIDd: 5.7 cm LA dimension: 3.4 cm LVIDs: 3.2 cm ACS: 0.92 cm LVPWd: 1.0 cm EDV(Teich): 158.5 ml LVOT diam: 2.0 cm ESV(Teich): 39.8 ml LAV (MOD-bp): 67.9 ml Doppler Measurements & Calculations MV E max benito: 148.0 cm/sec Ao V2 max: 292.0 cm/sec MV A max benito: 76.3 cm/sec Ao max P.2 mmHg MV E/A: 1.9 Ao V2 mean: 204.0 cm/sec MV dec time: 0.19 sec Ao mean P.3 mmHg Ao V2 VTI: 68.5 cm FABY(I,D): 1.5 cm2 AI P1/2t: 411.7 msec FABY(V,D): 1.5 cm2 AI max benito: 505.9 cm/sec LV V1 max P.8 mmHg AI max P.4 mmHg LV V1 mean P.5 mmHg AI dec slope: 359.9 cm/sec2 LV V1 max: 139.4 cm/sec LV V1 mean: 86.3 cm/sec LV V1 VTI: 32.5 cm MR max benito: 522.4 cm/sec SV(LVOT): 104.8 ml MR max P.8 mmHg TR max benito: 256.4 cm/sec PA V2 max: 75.4 cm/sec TR max P.3 mmHg PA max P.3 mmHg Med Peak E' Benito: 7.7 cm/sec PI Vmax: 138.0 cm/sec Med E/e': 19.2 Lat Peak E' Benito: 6.1 cm/sec Lat E/e': 24.3 Procedure A complete two-dimensional transthoracic echocardiogram was performed (2D, M-mode, Doppler and color flow Doppler). Left Ventricle The left ventricular size, thickness and function are normal. Ejection Fraction = 60-65%. The left ve ntricular wall motion is normal. Right Ventricle The right ventricle is normal in size and function. Atria Normal left and right atrial size and function. Mitral Valve There is mild to moderate mitral regurgitation. Tricuspid Valve No tricuspid regurgitation. There was insufficient TR detected to calculate RV systolic pressure. Aortic Valve Moderate to severe valvular aortic stenosis. Moderate aortic regurgitation. Pulmonic Valve There is no pulmonic valvular regurgitation. Great Vessels Aortic root dilated at 4.4 cm. Pericardium/Pleura There is no pericardial effusion. Interpretation Summary The left ventricular size, thickness and function are normal The right ventricle is normal in size and function. There is mild to moderate mitral regurgitation. Moderate aortic regurgitation. Moderate to severe valvular aortic stenosis. Aortic root dilated at 4.4 cm. MD Kemar Moseley 10/26/2019 12:59 PM
[2019-10-26] MEDS: metoPROLOL SUCCINATE 25 MG TAB.SR.24H (FP) PO SCH ×2 (14:12→14:20)
[2019-10-26 14:17] VITALS: BP 111/60; PULSE 55; TEMP 98.1
[2019-10-26] MEDS ORDERED: metoPROLOL SUCCINATE 25 MG TAB.SR.24H (FP) PO ONE (14:30)
--- NOTE | 2019-10-26 15:43 | EKG ---
Test Reason : Blood Pressure : / mmHG Vent. Rate : 056 BPM Atrial Rate : 056 BPM P-R Int : 140 ms QRS Dur : 082 ms QT Int : 418 ms P-R-T Axes : -21 016 050 degrees QTc Int : 403 ms SINUS BRADYCARDIA OTHERWISE NORMAL ECG WHEN COMPARED WITH ECG OF 25-OCT-2019 15:32, SINUS RHYTHM HAS REPLACED ECTOPIC ATRIAL RHYTHM Confirmed by JADIEL GERARD MD ([id number]) on 10/26/2019 3:43:26 PM Referred By: Confirmed By:JADIEL GERARD MD
--- NOTE | 2019-10-26 15:44 | EKG ---
Test Reason : Blood Pressure : / mmHG Vent. Rate : 060 BPM Atrial Rate : 060 BPM P-R Int : 140 ms QRS Dur : 088 ms QT Int : 398 ms P-R-T Axes : -39 017 017 degrees QTc Int : 398 ms SINUS RHYTHM Confirmed by JADIEL GERARD MD ([id number]) on 10/26/2019 3:44:06 PM Referred By: Confirmed By:JADIEL GERARD MD
== END 2019-10-26 19:14 | disposition home or self-care (01) | DRG 313 ==
LOC: JER 15:19 → JERBED 19:50 → INTOOBSV 19:50 → J4S 10-26 00:04
PROVIDERS: ADMIT Internal Medicine; ATTEND Internal Medicine
PROC: 3E033GC Introduction of Other Therapeutic Substance into Peripheral Vein, Percutaneous Approach (ICD-10-PCS; principal; 2019-10-25)
PROC: 3E033GC Introduction of Other Therapeutic Substance into Peripheral Vein, Percutaneous Approach (ICD-10-PCS; 2019-10-25)
DX: R07.89 Other chest pain (principal); I10 Essential (primary) hypertension; I25.10 Atherosclerotic heart disease of native coronary artery without angina pectoris; I35.0 Nonrheumatic aortic (valve) stenosis; I25.2 Old myocardial infarction; E78.5 Hyperlipidemia, unspecified; R00.1 Bradycardia, unspecified; R01.1 Cardiac murmur, unspecified; F41.9 Anxiety disorder, unspecified; F32.9 Major depressive disorder, single episode, unspecified; E66.3 Overweight; Z68.26 Body mass index [BMI] 26.0-26.9, adult; Z91.013 Allergy to seafood; Z86.19 Personal history of other infectious and parasitic diseases; Z95.5 Presence of coronary angioplasty implant and graft; Z79.02 Long term (current) use of antithrombotics/antiplatelets; Z79.82 Long term (current) use of aspirin
CPT/HCPCS: 36415; 71045-TC-FY; 78452-TC; 80048; 80053; 80061; 83036; 83721; 83735; 83880; 84443; 84484; 85025; 85027; 85379; 93005; 93010; 93017; 93306-TC; 96374; 96375; 99285-25; A9502; G0378; J2785; U0003

== ENCOUNTER 2023-04-18 13:34 | Emergency (ER) | payer OTHER ==
[2023-04-18 14:49] VITALS: BP 150/80; PULSE 85; RESP 18; TEMP 98; BMI 29.6
[2023-04-18] MEDS ORDERED: AMOX TR/POT CLAV 875MG/125MG TABLETS (FP) ONE (17:18)
[2023-04-18] MEDS ORDERED: ACETAMINOPHEN 325 MG TABLET (FP) ONE (17:18)
[2023-04-18] MEDS ORDERED: DIPHTH,PERTUSS(ACELL),TET 0.5 ML DISP.SYRIN IM ONE (17:19)
[2023-04-18] MEDS: AMOX TR/POT CLAV 875MG/125MG TABLETS (FP) PO ONE (17:23)
[2023-04-18] MEDS: DIPHTH,PERTUSS(ACELL),TET 0.5 ML DISP.SYRIN IM ONE (17:23)
[2023-04-18] MEDS: ACETAMINOPHEN 325 MG TABLET (FP) PO ONE (17:23)
== END 2023-04-18 17:46 | disposition home or self-care (01) ==
LOC: JERFT 13:34
PROC: 3E0234Z Introduction of Serum, Toxoid and Vaccine into Muscle, Percutaneous Approach (ICD-10-PCS; principal; 2023-04-18)
DX: S41.152A Open bite of left upper arm, initial encounter (principal); S61.552A Open bite of left wrist, initial encounter; W54.0XXA Bitten by dog, initial encounter
CPT/HCPCS: 90471; 90715; 99283-25